=== PATIENT | female | born 1980 | race Native Hawaiian/Other Pacific Islander ===

== ENCOUNTER 2016-05-02 09:28 | Outpatient (CLI) | payer MEDICAID ==
--- NOTE | 2016-05-02 13:50 | XRAY Report ---
TWO VIEW CHEST: 05/02/2016 CLINICAL INDICATION: Cough. FINDINGS: Frontal and lateral views of the chest demonstrate a normal cardiac silhouette. The lungs are clear. No effusion or pneumothorax is present. IMPRESSION: NORMAL CHEST. JOB #: [id number] EXT JOB #:[id number]
== END 2016-05-02 09:29 | disposition home or self-care (01) ==
LOC: DI.N 09:28
PROVIDERS: ATTEND Physician Assistant
DX: R05 Cough (principal)
CPT/HCPCS: 71020

== ENCOUNTER 2016-06-02 14:29 | Emergency (ER) | payer MEDICAID ==
[2016-06-02] MEDS ORDERED: predniSONE 20 MG TABLET PO STA (15:27)
[2016-06-02] MEDS ORDERED: predniSONE 20 MG TABLET ONE (15:34)
== END 2016-06-02 15:46 | disposition home or self-care (01) ==
DX: L50.9 Urticaria, unspecified (principal); I10 Essential (primary) hypertension; E11.9 Type 2 diabetes mellitus without complications; Z79.84 Long term (current) use of oral hypoglycemic drugs; M06.9 Rheumatoid arthritis, unspecified; Z87.891 Personal history of nicotine dependence
CPT/HCPCS: 99283; J7512

== ENCOUNTER 2016-06-12 08:00 | Outpatient (CLI) | payer MEDICAID | END 2016-06-12 08:01 | disposition home or self-care (01) | DX: R31.9 Hematuria, unspecified (principal) ==

== ENCOUNTER 2018-01-16 10:33 | Outpatient (CLI) | payer MEDICAID ==
[2018-01-16 12:49] LABS: BASOPHILS % (AUTO) 0.4 %; EOSINOPHILS # (AUTO) 0.2 10^3/uL (0.0-0.7); EOSINOPHILS % (AUTO) 1.6 %; HGB - HEMOGLOBIN 14.5 g/dL (12.0-16.0); LYMPHOCYTES # (AUTO) 2.6 10^3/uL (1.5-3.5); LYMPHOCYTES % (AUTO) 25.7 %; MEAN CORPUSCULAR HEMOGLOBIN 28.7 pg (27.0-31.0); MEAN CORPUSCULAR HGB CONC 33.7 g/dL (32.0-36.0); MEAN CORPUSCULAR VOLUME 85.2 fL (81.0-99.0); MEAN PLATELET VOLUME 8.8 fL (7.9-10.8); MONOCYTES # (AUTO) 0.5 10^3/uL (0.0-1.0); MONOCYTES % (AUTO) 4.9 %; NEUTROPHILS # (AUTO) 6.7 10^3/uL (1.5-6.6); NEUTROPHILS % (AUTO) 67.4 %; PLT - PLATELET COUNT 289 10^3/uL (130-450); RED BLOOD COUNT 5.03 10^6/uL (4.20-5.40); RED CELL DISTRIBUTION WIDTH 12.4 % (12.0-15.0)
[2018-01-16 13:09] LABS: ALBUMIN/GLOBULIN RATIO 1.2 (1.0-2.2); BILIRUBIN,TOTAL 0.6 mg/dL (0.2-1.0); CALCIUM 9.1 mg/dL (8.5-10.3); CREATININE 0.6 mg/dL (0.4-1.0); TOTAL PROTEIN 7.3 g/dL (6.7-8.2); URIC ACID 5.1 mg/dL (2.6-7.2)
[2018-01-16 13:37] LABS: HB2 TOTAL 15.8 g/dL; HEMOGLOBIN A1C 1.75 g/dL; HEMOGLOBIN A1C % 12.3 % (4.6-6.2)
== END 2018-01-16 10:34 ==
LOC: LAB.N 10:33
PROVIDERS: ATTEND Physician Assistant Medical
DX: N23 Unspecified renal colic (principal); E11.65 Type 2 diabetes mellitus with hyperglycemia; E66.9 Obesity, unspecified
CPT/HCPCS: 36415; 80050; 83036; 84550

== ENCOUNTER 2018-03-08 11:25 | Emergency (ER) | payer MEDICAID ==
--- NOTE | 2018-03-08 12:59 | ED Physician Documentation ---
PD HPI HEENT - Stated complaint Stated Complaint: THROAT PX/SWOLLEN TONGUE - Chief complaint Chief Complaint: Heent - History obtained from History obtained from: Patient - History of Present Illness Timing - onset: How many weeks ago (1) Timing - duration: Weeks (1) Timing - details: Gradual onset, Still present Location: Throat Improves: Medication Worsens: Swalllowing Associated symptoms: Congestion, Swollen nodes, Headache, Cough Similar symptoms before: Diagnosis (tonsillitis) Recently seen: Not recently seen - Additional information Additional information: 37 y/o female diabetic with a cough and congestion for the past week felt her illness was improving and then she developed worsening pain in the left side of the throat and she has more swelling and "white stuff" on the tonsil. She has pain with swallowing and not much in the way of a cough. Review of Systems Constitutional: reports: Myalgias, Fatigue. denies: Fever Eyes: denies: Decreased vision Ears: denies: Ear pain Nose: reports: Rhinorrhea / runny nose, Congestion Throat: reports: Sore throat Cardiac: denies: Chest pain / pressure, Palpitations Respiratory: reports: Cough. denies: Dyspnea GI: denies: Abdominal Pain, Nausea, Vomiting : denies: Dysuria, Frequency PD PAST MEDICAL HISTORY - Past Medical History Past Medical History: Yes Cardiovascular: Hypertension Endocrine/Autoimmune: Type 2 diabetes Musculoskeletal: Rheumatoid arthritis - Past Surgical History Past Surgical History: No - Present Medications Home Medications: Ambulatory Orders Medication Instructions Recorded Confirmed Lisinopril 10 mg PO DAILY 02/26/16 05/16/16 metFORMIN [Glucophage] 1,000 mg PO BIDWM 02/26/16 05/16/16 Acetaminophen 500 mg PO Q6HR PRN 03/08/16 05/16/16 Aspirin 81 mg PO DAILY 03/08/16 05/16/16 Naproxen 500 mg PO BID 03/08/16 05/16/16 Loratadine [Claritin] 10 mg PO DAILY #14 tablet 06/02/16 predniSONE [Prednisone] 40 mg PO DAILY 5 Days tablet 06/02/16 Azithromycin [Zithromax] 250 mg PO DAILY #6 tablet 03/08/18 - Allergies Allergies/Adverse Reactions: Allergies Allergy/AdvReac Type Severity Reaction Status Date / Time No Known Drug Allergies Allergy Verified 03/08/18 11:34 - Social History Does the pt smoke?: No Smoking Status: Never smoker Does the pt drink ETOH?: No Does the pt have substance abuse?: No - Immunizations Immunizations are current?: No Immunizations: TDAP >10years/unknown PD ED PE NORMAL - Vitals Vital signs reviewed: Yes (hypertensive) - General General: Alert and oriented X 3, No acute distress, Well developed/nourished - HEENT HEENT: Atraumatic, PERRL, EOMI, Moist mucous membranes, Other (minimal inflamtion on both TM's. There are 1+ tonsils bilaterally worse on the left with cryptic tonsils and exudate and tonsillith on the left which is removed with a cotton tip applicator. 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, No motor deficit, No sensory deficit, Normal speech Eye Opening: Spontaneous Motor: Obeys Commands Verbal: Oriented GCS Score: 15 - Psych Psych: Normal mood, Normal affect Results - Vitals Vitals: Vital Signs - 24 hr 03/08/18 11:31 Temperature 36.8 C Heart Rate 100 Respiratory 16 Rate Blood Pressure 146/104 H O2 Saturation 99 Oxygen O2 Source Room air - Labs Labs: Laboratory Tests 03/08/18 11:58 Group A Strep Rapid Negative PD MEDICAL DECISION MAKING - ED course Complexity details: considered differential, d/w patient ED course: 37 y/o diabetic female has a sore throat with a bimodal illness and cryptic exudative tonsils worse on the left. She will benefit from a short course of abx. Departure - Departure Disposition: 01 Home, Self Care Clinical Impression: Tonsillitis Condition: Stable Instructions: ED Tonsillitis Follow-Up: Kevin Barkley PA-C [Primary Care Provider] - Prescriptions: Azithromycin [Zithromax] 250 mg PO DAILY #6 tablet
[2018-03-08 13:23] VITALS: BP 130/82
== END 2018-03-08 13:31 | disposition home or self-care (01) ==
LOC: ED 11:25
DX: J03.90 Acute tonsillitis, unspecified (principal); E11.9 Type 2 diabetes mellitus without complications; Z79.84 Long term (current) use of oral hypoglycemic drugs; I10 Essential (primary) hypertension; Z79.82 Long term (current) use of aspirin
CPT/HCPCS: 87070; 87077; 87430; 99283

== ENCOUNTER 2018-05-30 08:00 | Outpatient (CLI) | payer MEDICAID ==
[2018-05-30 13:23] LABS: HB2 TOTAL 16.8 g/dL; HEMOGLOBIN A1C 1.75 g/dL; HEMOGLOBIN A1C % 11.7 % (4.6-6.2)
== END 2018-05-30 23:59 | disposition home or self-care (01) ==
LOC: LAB.N 08:00
PROVIDERS: ATTEND Physician Assistant Medical
DX: E11.65 Type 2 diabetes mellitus with hyperglycemia (principal)
CPT/HCPCS: 36415; 83036

== ENCOUNTER 2019-04-18 10:03 | Emergency (ER) | payer SELFPAY ==
[2019-04-18 10:38] VITALS: BP 166/89
--- NOTE | 2019-04-18 11:20 | ED Physician Documentation ---
History of Present Illness - Stated complaint Stated Complaint: R ANKLE SWELLING - Chief complaint Chief Complaint: Ext Problem - History obtained from History obtained from: Patient - History of Present Illness Timing: How many weeks ago (1) - Additonal information Additional information: 38-year-old female with a history of hypertension and diabetes has developed some swelling in her right ankle. She is had this happen to her previously when she has overused her feet. She recalls being seen here and having successful treatment. She states that she has been out of her medication since October of last year and has not been in to find her regular physician in follow-up. She is usually been on some metformin and lisinopril. Review of Systems Constitutional: reports: Fatigue. denies: Fever, Chills Nose: denies: Congestion Respiratory: denies: Dyspnea, Cough GI: denies: Vomiting Skin: denies: Rash Musculoskeletal: reports: Extremity pain, Joint pain, Extremity swelling, Pain with weight bearing. denies: Neck pain, Back pain Neurologic: denies: Generalized weakness, Focal weakness, Numbness PD PAST MEDICAL HISTORY - Past Medical History Cardiovascular: Hypertension Endocrine/Autoimmune: Type 2 diabetes Musculoskeletal: Rheumatoid arthritis - Past Surgical History Past Surgical History: No - Present Medications Home Medications: Ambulatory Orders Medication Instructions Recorded Confirmed Indomethacin 25 - 50 mg PO Q6HR PRN #30 capsule 04/18/19 Lisinopril [Prinivil] 10 mg PO DAILY #30 tablet 04/18/19 metFORMIN [Glucophage] 1,000 mg PO BIDWM #60 tablet 04/18/19 - Allergies Allergies/Adverse Reactions: Allergies Allergy/AdvReac Type Severity Reaction Status Date / Time No Known Drug Allergies Allergy Verified 04/18/19 10:13 - Social History Does the pt smoke?: No Smoking Status: Never smoker Does the pt drink ETOH?: No Does the pt have substance abuse?: No - Immunizations Immunizations are current?: No Immunizations: TDAP >10years/unknown PD ED PE NORMAL - Vitals Vital signs reviewed: Yes (Tachycardic and hypertensive) - General General: Alert and oriented X 3, No acute distress, Well developed/nourished - HEENT HEENT: Atraumatic, PERRL, EOMI - Respiratory Respiratory: No respiratory distress - Derm Derm: Normal color, Warm and dry, No rash - Extremities Extremities: Other (There is swelling and point tenderness to the medial aspect of the right ankle. 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 She had prior treatment with indomethacin which was successful. We will refill a prescription for indomethacin and we will fill prescriptions for 30 days of metformin and lisinopril. Departure - Departure Disposition: Home, Self Care Clinical Impression: Arthritis Hypertension Qualifiers: Hypertension type: essential hypertension Qualified Code(s): I10 - Essential (primary) hypertension Condition: Stable Instructions: Arthritis, ED HTN Established Follow-Up: Kevin Barkley PA-C [Primary Care Provider] - Prescriptions: Indomethacin 25 - 50 mg PO Q6HR PRN #30 capsule PRN Reason: Pain Lisinopril [Prinivil] 10 mg PO DAILY #30 tablet metFORMIN [Glucophage] 1,000 mg PO BIDWM #60 tablet Forms: Activity restrictions
== END 2019-04-18 11:32 | disposition home or self-care (01) ==
LOC: ED 10:03
DX: M13.871 Other specified arthritis, right ankle and foot (principal); Z76.0 Encounter for issue of repeat prescription; M06.9 Rheumatoid arthritis, unspecified; I10 Essential (primary) hypertension; E11.9 Type 2 diabetes mellitus without complications; Z79.84 Long term (current) use of oral hypoglycemic drugs
CPT/HCPCS: 99283; 99284

== ENCOUNTER 2019-04-24 07:57 | Outpatient (CLI) | payer SELFPAY ==
[2019-04-24 12:05] LABS: CALCIUM 8.6 mg/dL (8.5-10.3); CREATININE 0.6 mg/dL (0.4-1.0)
[2019-04-24 12:52] LABS: HB2 TOTAL 14.8 g/dL; HEMOGLOBIN A1C 1.83 g/dL; HEMOGLOBIN A1C % 13.5 % (4.6-6.2)
== END 2019-04-24 23:59 | disposition home or self-care (01) ==
LOC: LAB.N 07:57
PROVIDERS: ATTEND Physician Assistant Medical
DX: E11.65 Type 2 diabetes mellitus with hyperglycemia (principal)
CPT/HCPCS: 36415; 80048; 83036

== ENCOUNTER 2020-03-15 15:44 | Outpatient (CLI) | payer MEDICAID ==
--- NOTE | 2020-03-14 16:35 | XRAY Report ---
PROCEDURE: Elbow 2 View LT INDICATIONS: LEFT ELBOW PAIN TECHNIQUE: 2 views of the elbow were acquired. COMPARISON: None FINDINGS: Bones: No fractures or dislocations. No suspicious bony lesions. Soft tissues: No elbow joint effusion. No suspicious soft tissue calcifications. IMPRESSION: No elbow fracture or dislocation. No joint effusion. Reviewed by: Reji Lamb MD on 03/14/2020 4:33 PM PST Approved by: Reji Lamb MD on 03/14/2020 4:33 PM PST Station ID: [id number]
== END 2020-03-15 23:59 | disposition home or self-care (01) ==
LOC: DI.N 15:44
PROVIDERS: ATTEND Nurse Practitioner
DX: M25.522 Pain in left elbow (principal)

== ENCOUNTER 2020-05-21 14:20 | Outpatient (CLI) | payer MEDICAID ==
--- NOTE | 2020-05-21 14:47 | XRAY Report ---
PROCEDURE: Cervical Spine 2 View INDICATIONS: CERVICAL DISK DISORDER TECHNIQUE: 4 view(s) of the cervical spine were acquired. COMPARISON: None. FINDINGS: Bones: No fractures or dislocations to the C6 level. The lateral masses of C1 appear intact on the odontoid view. No suspicious bony lesions. Soft tissues: No prevertebral soft tissue swelling. IMPRESSION: No acute fracture. No osseous lesion. If symptoms and/or clinical suspicion for patholog y continue, further assessment with repeat plain films, or advanced imaging (e.g., CT, MRI, or bone s can) is recommended for further assessment. Reviewed by: Irma Forrest MD on 05/21/2020 1:46 PM [facility] Approved by: Irma Forrest MD on 05/21/2020 1:46 PM [facility] Station ID: [id number]
--- NOTE | 2020-05-21 14:48 | XRAY Report ---
PROCEDURE: Shoulder 3 View LT INDICATIONS: LEFT SHOULDER PAIN TECHNIQUE: 3 views of the shoulder were acquired. COMPARISON: None. FINDINGS: Bones: No fractures or dislocations. No suspicious bony lesions. Visualized ribs appear intact. ; Articular osteophyte formation at the acromioclavicular and glenohumeral joints. Soft tissues: No suspicious soft tissue calcifications. IMPRESSION: Osteoarthritis. No acute fracture. No osseous lesion. If symptoms and/or clinical suspic ion for pathology continue, further assessment with repeat plain films, or advanced imaging (e.g., CT , MRI, or bone scan) is recommended for further assessment. Reviewed by: Irma Forrest MD on 05/21/2020 1:46 PM [facility] Approved by: Irma Forrest MD on 05/21/2020 1:46 PM [facility] Station ID: [id number]
== END 2020-05-21 14:21 | disposition home or self-care (01) ==
LOC: DI.N 14:20
PROVIDERS: ATTEND Family Medicine
DX: M50.10 Cervical disc disorder with radiculopathy, unspecified cervical region (principal); M19.012 Primary osteoarthritis, left shoulder

== ENCOUNTER 2020-08-03 08:00 | Outpatient (CLI) | payer MEDICAID | END 2020-08-03 23:59 | disposition home or self-care (01) | LOC: LAB.N 08:00 | PROVIDERS: ATTEND Nurse Practitioner | DX: J06.9 Acute upper respiratory infection, unspecified (principal); Z20.822 Contact with and (suspected) exposure to COVID-19 ==

== ENCOUNTER 2020-10-07 12:17 | Outpatient (CLI) | payer MEDICAID ==
[2020-10-07 17:40] LABS: BASOPHILS # (AUTO) 0.1 10^3/uL (0.0-0.1); BASOPHILS % (AUTO) 0.5 %; EOSINOPHILS # (AUTO) 0.2 10^3/uL (0.0-0.7); EOSINOPHILS % (AUTO) 2.1 %; HCT - HEMATOCRIT 44.8 % (37.0-47.0); HGB - HEMOGLOBIN 14.6 g/dL (12.0-16.0); LYMPHOCYTES % (AUTO) 28.9 %; MEAN CORPUSCULAR HEMOGLOBIN 28.1 pg (27.0-31.0); MEAN CORPUSCULAR HGB CONC 32.6 g/dL (32.0-36.0); MEAN CORPUSCULAR VOLUME 86.3 fL (81.0-99.0); MEAN PLATELET VOLUME 10.6 fL (7.9-10.8); MONOCYTES # (AUTO) 0.6 10^3/uL (0.0-1.0); MONOCYTES % (AUTO) 5.6 %; NEUTROPHILS # (AUTO) 6.5 10^3/uL (1.5-6.6); NEUTROPHILS % (AUTO) 62.6 %; PLT - PLATELET COUNT 294 10^3/uL (130-450); RED BLOOD COUNT 5.19 10^6/uL (4.20-5.40); RED CELL DISTRIBUTION WIDTH 11.7 % (12.0-15.0); WHITE BLOOD COUNT 10.4 x10^3/uL (4.8-10.8)
[2020-10-07 17:57] LABS: ALBUMIN 4.2 g/dL (3.2-5.5); ALBUMIN/GLOBULIN RATIO 1.3 (1.0-2.2); ALKALINE PHOSPHATASE 61 IU/L (42-121); ALT ALANINE AMINOTRANSFERASE 13 IU/L (10-60); AST ASPARTATE AMINOTRANSFERASE 12 IU/L (10-42); BILIRUBIN,TOTAL 0.8 mg/dL (0.2-1.0); BUN - BLOOD UREA NITROGEN 16 mg/dL (6-20); CARBON DIOXIDE - CO2 29 mmol/L (21-32); CHLORIDE 94 mmol/L (101-111); CHOL/HDL RATIO 5.1 (<4.4); CHOLESTEROL 250 mg/dL; CREATININE 0.4 mg/dL (0.4-1.0); GFR - MDRD 179 (>89); GLUCOSE 185 mg/dL (70-100); HDL CHOLESTEROL 49 mg/dL; LDL CHOLESTEROL,CALCULATED 159 mg/dL; LDL/HDL RATIO 3.2 (<4.4); POTASSIUM 3.7 mmol/L (3.5-5.0); SODIUM 132 mmol/L (135-145); TOTAL PROTEIN 7.4 g/dL (6.7-8.2); TRIGLYCERIDES 210 mg/dL; VLDL CHOLESTEROL 42 mg/dL
[2020-10-07 17:59] LABS: CREATININE,URINE 173.7 mg/dL; MICROALBUM/CREATININE RATIO,UR 158.3 ug/mg (<30.0); MICROALBUMIN,URINE 27.5 mg/dL (0-300.0)
[2020-10-07 18:07] LABS: THYROID STIMULATING HORMONE 0.87 uIU/mL (0.34-5.60)
[2020-10-07 20:05] LABS: ESTIMATED AVERAGE GLUCOSE 301 mg/dL (70-100); HEMOGLOBIN A1c% 12.1 % (4.27-6.07)
== END 2020-10-07 12:18 | disposition home or self-care (01) ==
LOC: LAB.N 12:17
PROVIDERS: ATTEND Family Medicine
DX: E11.8 Type 2 diabetes mellitus with unspecified complications (principal)
CPT/HCPCS: 36415; 80050; 80061; 82043; 82570; 83036; 83721

== ENCOUNTER 2021-01-02 13:37 | Outpatient (CLI) | payer MEDICAID ==
--- NOTE | 2021-01-02 14:26 | XRAY Report ---
PROCEDURE: Shoulder 3 View LT INDICATIONS: LEFT SHOULDER PAIN TECHNIQUE: 3 views of the shoulder were acquired. COMPARISON: None. FINDINGS: Bones: No fractures or dislocations. No suspicious bony lesions. Visualized ribs appear intact. H umeral head is mildly high riding. Soft tissues: No suspicious soft tissue calcifications. IMPRESSION: No acute osseous abnormality. High riding humeral head which can be seen with rotator cuff pathology. Reviewed by: Tatyana Cat MD on 01/02/2021 2:24 PM PDT Approved by: Tatyana Cat MD on 01/02/2021 2:24 PM PDT Station ID: [id number]
== END 2021-01-02 13:38 ==
LOC: DI.N 13:37
PROVIDERS: ATTEND Physician Assistant
DX: M25.512 Pain in left shoulder (principal); R93.6 Abnormal findings on diagnostic imaging of limbs

== ENCOUNTER 2021-01-11 14:59 | Outpatient (CLI) | payer MEDICAID ==
[2021-01-11 21:15] LABS: ESTIMATED AVERAGE GLUCOSE 283 mg/dL (70-100); HEMOGLOBIN A1c% 11.5 % (4.27-6.07)
== END 2021-01-11 23:59 | disposition home or self-care (01) ==
LOC: LAB.WCP 14:59
PROVIDERS: ATTEND Family Medicine
DX: E11.8 Type 2 diabetes mellitus with unspecified complications (principal)
CPT/HCPCS: 36415; 83036

== ENCOUNTER 2021-02-28 08:00 | Outpatient (CLI) | payer MEDICAID ==
[2021-03-01 09:25] LABS: BASOPHILS # (AUTO) 0.1 10^3/uL (0.0-0.1); BASOPHILS % (AUTO) 0.4 %; EOSINOPHILS # (AUTO) 0.3 10^3/uL (0.0-0.7); EOSINOPHILS % (AUTO) 2.2 %; HCT - HEMATOCRIT 44.8 % (37.0-47.0); HGB - HEMOGLOBIN 14.4 g/dL (12.0-16.0); LYMPHOCYTES # (AUTO) 3.1 10^3/uL (1.5-3.5); LYMPHOCYTES % (AUTO) 26.1 %; MEAN CORPUSCULAR HGB CONC 32.1 g/dL (32.0-36.0); MEAN CORPUSCULAR VOLUME 87.2 fL (81.0-99.0); MEAN PLATELET VOLUME 10.7 fL (7.9-10.8); MONOCYTES # (AUTO) 0.8 10^3/uL (0.0-1.0); MONOCYTES % (AUTO) 6.3 %; NEUTROPHILS # (AUTO) 7.7 10^3/uL (1.5-6.6); NEUTROPHILS % (AUTO) 64.6 %; PLT - PLATELET COUNT 305 10^3/uL (130-450); RED BLOOD COUNT 5.14 10^6/uL (4.20-5.40); RED CELL DISTRIBUTION WIDTH 12.4 % (12.0-15.0); WHITE BLOOD COUNT 11.9 x10^3/uL (4.8-10.8)
[2021-03-01 10:57] LABS: ALBUMIN 4.2 g/dL (3.2-5.5); ALBUMIN/GLOBULIN RATIO 1.4 (1.0-2.2); ALKALINE PHOSPHATASE 60 IU/L (42-121); ALT ALANINE AMINOTRANSFERASE 14 IU/L (10-60); AST ASPARTATE AMINOTRANSFERASE 16 IU/L (10-42); BILIRUBIN,TOTAL 0.8 mg/dL (0.2-1.0); BUN - BLOOD UREA NITROGEN 12 mg/dL (6-20); CALCIUM 8.8 mg/dL (8.5-10.3); CARBON DIOXIDE - CO2 27 mmol/L (21-32); CHLORIDE 98 mmol/L (101-111); CHOL/HDL RATIO 5.2 (<4.4); CHOLESTEROL 202 mg/dL; CREATININE 0.4 mg/dL (0.4-1.0); GFR - MDRD 179 (>89); GLUCOSE 302 mg/dL (70-100); HDL CHOLESTEROL 39 mg/dL; LDL CHOLESTEROL,CALCULATED 138 mg/dL; LDL/HDL RATIO 3.5 (<4.4); POTASSIUM 3.6 mmol/L (3.5-5.0); SODIUM 134 mmol/L (135-145); TOTAL PROTEIN 7.3 g/dL (6.7-8.2); TRIGLYCERIDES 125 mg/dL; VLDL CHOLESTEROL 25 mg/dL
[2021-03-01 11:06] LABS: THYROID STIMULATING HORMONE 0.82 uIU/mL (0.34-5.60)
[2021-03-01 12:37] LABS: ESTIMATED AVERAGE GLUCOSE 246 mg/dL (70-100); HEMOGLOBIN A1c% 10.2 % (4.27-6.07)
== END 2021-02-28 23:59 | disposition home or self-care (01) ==
LOC: LAB.WCP 08:00
PROVIDERS: ATTEND Family Medicine
DX: I10 Essential (primary) hypertension (principal); E11.8 Type 2 diabetes mellitus with unspecified complications
CPT/HCPCS: 36415; 80050; 80061; 83036; 83721

== ENCOUNTER 2021-06-19 07:56 | Outpatient (CLI) | payer MEDICAID ==
[2021-06-19 12:51] LABS: ALBUMIN 4.3 g/dL (3.2-5.5); ALBUMIN/GLOBULIN RATIO 1.2 (1.0-2.2); ALKALINE PHOSPHATASE 75 IU/L (42-121); ALT ALANINE AMINOTRANSFERASE 14 IU/L (10-60); AST ASPARTATE AMINOTRANSFERASE 12 IU/L (10-42); BILIRUBIN,TOTAL 0.2 mg/dL (0.2-1.0); BUN - BLOOD UREA NITROGEN 15 mg/dL (6-20); CARBON DIOXIDE - CO2 26 mmol/L (21-32); CHLORIDE 99 mmol/L (101-111); CHOL/HDL RATIO 4.6 (<4.4); CHOLESTEROL 209 mg/dL; CREATININE 0.5 mg/dL (0.4-1.0); GFR - MDRD 137 (>89); GLUCOSE 273 mg/dL (70-100); HDL CHOLESTEROL 45 mg/dL; LDL CHOLESTEROL,CALCULATED 139 mg/dL; LDL/HDL RATIO 3.1 (<4.4); POTASSIUM 3.9 mmol/L (3.5-5.0); SODIUM 135 mmol/L (135-145); TOTAL PROTEIN 7.8 g/dL (6.7-8.2); TRIGLYCERIDES 126 mg/dL; VLDL CHOLESTEROL 25 mg/dL
[2021-06-19 13:53] LABS: ESTIMATED AVERAGE GLUCOSE 298 mg/dL (70-100)
== END 2021-06-19 07:57 | disposition home or self-care (01) ==
LOC: LAB.N 07:56
PROVIDERS: ATTEND Family Medicine
DX: E11.8 Type 2 diabetes mellitus with unspecified complications (principal)
CPT/HCPCS: 36415; 80053; 80061; 83036; 83721

== ENCOUNTER 2021-07-13 14:10 | Emergency (ER) | payer MEDICAID ==
--- NOTE | 2021-07-13 14:36 | ED Physician Documentation ---
History of Present Illness - Stated complaint Stated Complaint: C+HIGH HEART RATE - Chief complaint Chief Complaint: Cardiac - Additonal information Additional information: 41-year-old female who carries a history of diabetes presents the emergency department at the advice of local walk-in clinic for further evaluation and possible treatment of her COVID-19 infection. She began getting symptoms on 04 July and tested positive on the . She continues to test positive therefore she went to a walk-in clinic seeking treatment. It sounds as though she had a mildly elevated heart rate and given the history of diabetes and her desire for oral antiviral therapy she was referred to the emergency department. She denies any fevers. She does have some mild shortness of air. Her cough is dry. No loss of taste or smell nausea vomiting or diarrhea. She is fully vaccinated and boosted for COVID-19. Review of Systems Constitutional: denies: Fever, Chills Nose: reports: Congestion Throat: reports: Reviewed and negative Cardiac: reports: Reviewed and negative Respiratory: reports: Cough GI: reports: Reviewed and negative : reports: Reviewed and negative Skin: reports: Reviewed and negative Musculoskeletal: reports: Reviewed and negative PD PAST MEDICAL HISTORY - Past Medical History Cardiovascular: Hypertension Endocrine/Autoimmune: Type 2 diabetes Musculoskeletal: Rheumatoid arthritis - Past Surgical History Past Surgical History: No - Present Medications Home Medications: Ambulatory Orders Medication Instructions Recorded Confirmed Indomethacin 25 - 50 mg PO Q6HR PRN #30 capsule 04/18/19 lisinopriL [Prinivil] 10 mg PO DAILY #30 tablet 04/18/19 metFORMIN [Glucophage] 1,000 mg PO BIDWM #60 tablet 04/18/19 - Allergies Allergies/Adverse Reactions: Allergies Allergy/AdvReac Type Severity Reaction Status Date / Time No Known Drug Allergies Allergy Verified 07/13/21 14:13 - Social History Does the pt smoke?: No Smoking Status: Never smoker Does the pt drink ETOH?: No Does the pt have substance abuse?: No - Immunizations Immunizations are current?: No Immunizations: TDAP >10years/unknown PD ED PE EXPANDED - General General: Alert, No acute distress, Other (Obese) - Cardiac Cardiac: Regular Rate, Murmur Present, Radial strong equal, Pedal strong equal, Cap refill < 2 sec - Respiratory Respiratory: Clear to ausultation masoud. No: Distress, Labored - Abdomen Abdomen: Normal Bowel sounds. No: Tender to palpation - Derm Derm: Normal color, Warm and dry, Rash - Extremities Extremities: Normal. No: Deformity, Tenderness - Neuro Neuro: Alert and Oriented X 3, CNII-XII intact. No: Confused, Disoriented - GCS Eye Opening: Spontaneous Motor: Obeys Commands Verbal: Oriented Total: 15 Results - Vitals Vitals: Vital Signs - 24 hr 07/13/21 14:14 Temperature 36.9 C Heart Rate 107 H Respiratory 18 Rate Blood Pressure 191/104 H O2 Saturation 96 Oxygen O2 Source Room air - EKG (time done) 1418 Rate: Rate (enter#) (103) Rhythm: Sinus tachycardia [place]: Normal Intervals: Normal GA QRS: Low voltage Ischemia: Normal ST segments Compare to prior EKG: Old EKG unavailable Computer interpretation: Agree with computer - Labs Labs: Laboratory Tests 07/13/21 07/13/21 14:32 14:32 WBC 13.4 H RBC 5.26 Hgb 14.7 Hct 43.7 MCV 83.1 MCH 27.9 MCHC 33.6 RDW 11.7 L Plt Count 305 MPV 10.1 Neut # (Auto) 9.5 H Lymph # (Auto) 2.6 [place] # (Auto) 0.9 Eos # (Auto) 0.3 Baso # (Auto) 0.1 Absolute Nucleated RBC 0.00 Nucleated RBC % 0.0 Sodium 135 Potassium 4.2 Chloride 96 L Carbon Dioxide 29 Anion Gap 10.0 BUN 18 Creatinine 0.6 Estimated GFR (MDRD) 111 Glucose 446 H Calcium 9.9 Total Bilirubin 0.6 AST 15 ALT 19 Alkaline Phosphatase 61 Total Protein 7.9 Albumin 4.2 Globulin 3.7 Albumin/Globulin Ratio 1.1 Lipase 37 - Rads (name of study) cxr Radiology: Final report received (No acute cardiopulmonary process) PD MEDICAL DECISION MAKING - ED course Complexity details: reviewed results, re-evaluated patient, considered differential, d/w patient ED course: 41-year-old female presents emergency department for evaluation for COVID-19 symptoms. Began getting them 9 days ago and tested positive on the . She is doubly vaccinated and boosted. She is a diabetic as well as on a statin. Her screening chest x-ray shows no acute abnormalities. No hypoxia and unremarkable cardiopulmonary auscultation. Would not meet criteria for inpatient hospitalization. Her screening labs do show a preserved renal function. She is noted to have a markedly elevated blood glucose today. Admits to not taking her insulins this morning. We discussed the use of the oral antiviral therapy paxlovid in the setting of COVID-19 infection. She is within the window of treatment. The statin that she takes daily she has been advised to stop while on the paxlovid. She is otherwise encouraged to continue her other medications as well as her insulins for improved glucose control. Emergent return precautions were discussed for worsening symptoms severe shortness of air or chest pain. Departure - Departure Disposition: Home, Self Care Clinical Impression: COVID-19, Poorly controlled diabetes mellitus Condition: Stable Record reviewed to determine appropriate education?: Yes Comments: Zoya you tested positive for COVID-19 9 days ago. You are vaccinated and boosted. However you are interested in taking the oral antiviral therapy called pack Slo-Bid to help you through this infection. While you are on this medication for the next 5 days I do recommend that you abstain from taking your oral statin. I do recommend that you continue to take your other medications especially the insulins and control of your diabetes. If at any point you feel that your COVID symptoms are worsening, you have severe chest pain, shortness of air, any fainting episodes or uncontrolled vomiting then please return to the ER for a second evaluation.
[2021-07-13 14:43] LABS: BASOPHILS # (AUTO) 0.1 10^3/uL (0.0-0.1); BASOPHILS % (AUTO) 0.4 %; EOSINOPHILS # (AUTO) 0.3 10^3/uL (0.0-0.7); HCT - HEMATOCRIT 43.7 % (37.0-47.0); HGB - HEMOGLOBIN 14.7 g/dL (12.0-16.0); LYMPHOCYTES # (AUTO) 2.6 10^3/uL (1.5-3.5); LYMPHOCYTES % (AUTO) 19.7 %; MEAN CORPUSCULAR HEMOGLOBIN 27.9 pg (27.0-31.0); MEAN CORPUSCULAR HGB CONC 33.6 g/dL (32.0-36.0); MEAN CORPUSCULAR VOLUME 83.1 fL (81.0-99.0); MEAN PLATELET VOLUME 10.1 fL (7.9-10.8); MONOCYTES # (AUTO) 0.9 10^3/uL (0.0-1.0); MONOCYTES % (AUTO) 6.5 %; NEUTROPHILS # (AUTO) 9.5 10^3/uL (1.5-6.6); NEUTROPHILS % (AUTO) 70.8 %; PLT - PLATELET COUNT 305 10^3/uL (130-450); RED BLOOD COUNT 5.26 10^6/uL (4.20-5.40); RED CELL DISTRIBUTION WIDTH 11.7 % (12.0-15.0); WHITE BLOOD COUNT 13.4 x10^3/uL (4.8-10.8)
[2021-07-13 15:01] LABS: ALBUMIN 4.2 g/dL (3.2-5.5); ALBUMIN/GLOBULIN RATIO 1.1 (1.0-2.2); BILIRUBIN,TOTAL 0.6 mg/dL (0.2-1.0); CALCIUM 9.9 mg/dL (8.5-10.3); CREATININE 0.6 mg/dL (0.4-1.0); POTASSIUM 4.2 mmol/L (3.5-5.0); TOTAL PROTEIN 7.9 g/dL (6.7-8.2)
[2021-07-13] MEDS ORDERED: NIRMATRELVIR/RITONAVIR PREPACK PO STA (15:09)
--- NOTE | 2021-07-13 15:21 | XRAY Report ---
PROCEDURE: Chest 1 View X-Ray INDICATIONS: Chest pain TECHNIQUE: One view of the chest was acquired. COMPARISON: Chest radiograph 05/02/2016 FINDINGS: Surgical changes and devices: None. Lungs and pleura: No pleural effusions or pneumothorax. Lungs are clear. Mediastinum: Mediastinal contours appear normal. Heart size is normal. Bones and chest wall: No suspicious bony lesions. Overlying soft tissues appear unremarkable. IMPRESSION: No acute cardiopulmonary abnormality. Reviewed by: Ed Fu MD on 07/13/2021 3:19 PM PDT Approved by: Ed Fu MD on 07/13/2021 3:19 PM PDT Station ID: [id number]
[2021-07-13 15:36] VITALS: BP 134/81
== END 2021-07-13 15:35 | disposition home or self-care (01) ==
LOC: ED 14:10
DX: U07.1 COVID-19 (principal); E11.9 Type 2 diabetes mellitus without complications; Z79.84 Long term (current) use of oral hypoglycemic drugs
CPT/HCPCS: 36415; 71045; 80053; 83690; 84484; 85025; 93005; 99284; J3490

== ENCOUNTER 2024-11-27 06:46 | Inpatient (IN) ==
[2024-11-27] MEDS: ONDANSETRON ODT 4 MG TABLET TL STA (08:25)
[2024-11-27 08:29] LABS: B. PARAPERTUSSIS- RESP PCR PAN NOT DETECTED; B. PERTUSSIS- RESP PCR PANEL NOT DETECTED; C. PNEUMONIAE- RESP PCR PANEL NOT DETECTED; CORONAVIRUS 229E-RESP PCR NOT DETECTED; CORONAVIRUS HKU1-RESP PCR NOT DETECTED; CORONAVIRUS NL63-RESP PCR NOT DETECTED; CORONAVIRUS OC43-RESP PCR NOT DETECTED; HUMAN METAPNEUMOVIRUS NOT DETECTED; INFLUENZA A- RESP PCR PANEL NOT DETECTED; INFLUENZA B - RESP PCR PANEL NOT DETECTED; M. PNEUMONIAE- RESP PCR PANEL NOT DETECTED; PARAINFLUENZA VIRUS 1 NOT DETECTED; PARAINFLUENZA VIRUS 2 NOT DETECTED; PARAINFLUENZA VIRUS 4 NOT DETECTED; RHINOVIRUS/ENTEROVIRUS NOT DETECTED; RSV- RESP PCR PANEL NOT DETECTED; SARS-CoV-2 -RESP PCR PANEL NOT DETECTED
[2024-11-27] MEDS: SODIUM CHLORIDE 0.9% 1,000 ML IV STA ×4 (08:30→10:50)
[2024-11-27 08:54] LABS: HCT - HEMATOCRIT 32.4 % (37.0-47.0); HGB - HEMOGLOBIN 10.8 g/dL (12.0-16.0); MEAN PLATELET VOLUME 11.1 fL (7.9-10.8); PLT - PLATELET COUNT 228 10^3/uL (130-450); RED CELL DISTRIBUTION WIDTH 12.4 % (12.0-15.0)
[2024-11-27 08:57] LABS: ABNORMAL LYMPHS % (MANUAL) 0 %; BASOPHILS # (MANUAL) 0.0 10^3/uL (0-0.1); EOSINOPHILS # (MANUAL) 0.0 10^3/uL (0-0.7)
[2024-11-27 09:15] LABS: ALT ALANINE AMINOTRANSFERASE 9.0 IU/L (10-60); AST ASPARTATE AMINOTRANSFERASE 10.0 IU/L (10-42); BUN - BLOOD UREA NITROGEN 38.0 mg/dL (6-20); CARBON DIOXIDE - CO2 14.0 mmol/L (21-32); CREATININE 1.6 mg/dL (0.6-1.3); GFR - MDRD 35.0 (>89)
[2024-11-27 09:34] LABS: BAND NEUTROPHILS % (MANUAL) 16 %; LYMPHOCYTES # (MANUAL) 1.8 10^3/uL (1.5-3.5); LYMPHOCYTES % (MANUAL) 6 %; MONOCYTES # (MANUAL) 1.2 10^3/uL (0.0-1.0); NEUTROPHILS # (MANUAL) 26.4 10^3/uL (1.5-6.6)
[2024-11-27 09:35] LABS: PLATELET ESTIMATE, MANUAL NORMAL (130-450,000) (NORMAL); PLATELET MORPHOLOGY NORMAL APPEARANCE (NORMAL); RBC MORPHOLOGY (MULTIPLE) NORMAL APPEARANCE (NORMAL); WBC MORPHOLOGY (MULTIPLE) NORMAL APPEARANCE (NORMAL)
[2024-11-27] MEDS: INSULIN REGULAR IN 0.9 % NS 100 UNIT/100 ML BAG IV SCH ×2 (09:50→12:59)
[2024-11-27] MEDS ORDERED: INSULIN REGULAR IN 0.9 % NS 100 UNIT/100 ML BAG IV SCH (10:00)
[2024-11-27] MEDS: DROPERIDOL 5 MG/2 ML VIAL IVP STA (10:48)
[2024-11-27 10:57] LABS: GASTROCCULT POSITIVE (Negative)
[2024-11-27 11:17] LABS: BUN - BLOOD UREA NITROGEN 35.0 mg/dL (6-20); CARBON DIOXIDE - CO2 17.0 mmol/L (21-32); CREATININE 1.3 mg/dL (0.6-1.3); GFR - MDRD 45.0 (>89)
[2024-11-27 11:18] LABS: GLUCOSE, URINE (UA) >=1000 mg/dL (NEGATIVE); KETONES,URINE (UA) >=80 mg/dL (NEGATIVE); OCCULT BLOOD,URINE LARGE (NEGATIVE)
[2024-11-27 11:26] LABS: SQUAMOUS EPITHELIAL CELL,UR FEW Squamous (<= Few)
[2024-11-27] MEDS: PANTOPRAZOLE 40 MG VIAL IV STA (11:41)
[2024-11-27] MEDS: POTASSIUM CHLOR 10 MEQ/100 ML 10 MEQ/100 ML BAG IV STA (11:44)
--- NOTE | 2024-11-27 11:50 | CT Report ---
PROCEDURE: CT Abdomen/Pelvis W INDICATIONS: vomiting fever wbc 30 CONTRAST: IV contrast 100ml omni 300 TECHNIQUE: After the administration of intravenous contrast, a CT scan of the abdomen and pelvis was performed. Images were recorded and evaluated at appropriate window settings. Reformats: coronal and sagittal. For radiation dose reduction, the following was used: automated exposure control, adjustment of mA and/or kV according to patient size. COMPARISON: None. FINDINGS: Image quality: Diagnostic Lower chest: Lung bases appear unremarkable. Mild nonspecific distal esophageal wall thickening possibly esophagitis. Liver: Unremarkable Gallbladder and biliary system: Unremarkable Pancreas: No ductal dilation Spleen: Nonenlarged Adrenals: No discrete nodules Kidneys: No hydronephrosis bilaterally. At the left kidney, there is a low density region measuring 5.1 x 4.7 cm with adjacent indistinctness of the cortex. Capsular hyperdense collection is seen measuring up to 13.9 x 8.5 cm. Edema and hemorrhage extends along the left retroperitoneum. Vessels and lymph nodes: The main portal vein appears patent. No abdominal aortic aneurysm. Mild aortoiliac atherosclerotic calcifications. Prominent retroperitoneal lymph nodes, not enlarged by size criteria, possibly reactive Bowel and peritoneum: No bowel obstruction. No drainable intraperitoneal abscess or ascites. Mild edema and fat stranding extends along the left mesenteric root to the left paracolic gutter. Body wall: Unremarkable Pelvis: Bladder shows mild wall thickening at the anterior aspect. Reproductive organs are unremarkable limited CT evaluation Bones: No aggressive appearing osseous finding. There are mild lumbosacral degenerative changes. IMPRESSION: 5.1 cm hypoattenuating left renal hypoattenuating region. Adjacent 13.9 cm hyperdense left renal capsular collection. Given concern for infection, this could represent an intrarenal abscess with capsular rupture and hematoma. Other considerations include underlying renal lesion with capsular rupture or a renal laceration. Edema and suspected hemorrhage extends along the left retroperitoneum and mesenteric root If there clinical concern for bleeding and trauma, multiphase CT could be used to assess for extravasation. No hydronephrosis. Mild bladder wall thickening, correlate urinalysis. Other findings above. Reviewed by: Rios Leon MD on 11/27/2024 11:49 AM PDT Approved by: Rios Leon MD on 11/27/2024 11:49 AM PDT Station ID: [id number]
--- OUTSIDE RECORDS SUMMARY | 2024-11-27 11:56 | EXTERNAL MEDICAL SUMMARY RPT | Continuity of Care Document ---
Author Organization [facility] Address [address] [address] Phone Results/Labs test date facility value unit notes Result panel 1 SARS-CoV-2 -RESP PCR PANEL 2024-11-27 07:05 [facility] NOT DETECTED (missing) A negative test result for this test indicates that SARS-CoV-2 RNA was not present in the specimen above the limit of detection. Testing performed on the BioFire RP2.1 Panel, a multiplexed nucleic acid repiratory panel. Negative results do not preclude infection with SARS-CoV-2 virus and should not be the sole basis of a patient management decision. In some patients repeat testing at various time points may be necessary for virus detection. False-negative results may arise from improper sample collection, degradation of viral RNA during shipping or storage, the presence of PCR inhibitors, and/or mutation in the SARS-CoV-2 virus. INFLUENZA A- RESP PCR PANEL 2024-11-27 07:05 [facility] NOT DETECTED (missing) Influenza A including subtypes H1, H3, and H1-2009 not detected by the BioFire RP2.1 Panel, a multiplexed nucleic acid test intended for the simultaneous qualitative detection and differentiation of nucleic acids from multiple viral and bacterial respiratory organisms. B. PARAPERTUSSIS- RESP PCR YBARRA 2024-11-27 07:05 [facility] NOT DETECTED (missing) Negative results for this organism do not preclude infection with this organism and may require additional laboratory testing (e.g., bacterial and viral culture, immunofluorescence, and radiography) when evaluating a patient with possible respiratory tract infection. B. PERTUSSIS- RESP PCR PANEL 2024-11-27 07:05 [facility] NOT DETECTED (missing) Negative results for this organism do not preclude infection with this organism and may require additional laboratory testing (e.g., bacterial and viral culture, immunofluorescence, and radiography) when evaluating a patient with possible respiratory tract infection. C. PNEUMONIAE- RESP PCR PANEL 2024-11-27 07:05 [facility] NOT DETECTED (missing) Negative results for this organism do not preclude infection with this organism and may require additional laboratory testing (e.g., bacterial and viral culture, immunofluorescence, and radiography) when evaluating a patient with possible respiratory tract infection. M. PNEUMONIAE- RESP PCR PANEL 2024-11-27 07:05 [facility] NOT DETECTED (missing) Negative results for this organism do not preclude infection with this organism and may require additional laboratory testing (e.g., bacterial and viral culture, immunofluorescence, and radiography) when evaluating a patient with possible respiratory tract infection. CORONAVIRUS 229E-RESP PCR 2024-11-27 07:05 [facility] NOT DETECTED (missing) Negative results in the setting ofa respiratory illness may be due to infection with pathogens not detected by this test, or lower respiratory tract infection that may not be detected by nasopharyngeal specimen. CORONAVIRUS HKU1-RESP PCR 2024-11-27 07:05 [facility] NOT DETECTED (missing) Negative results in the setting ofa respiratory illness may be due to infection with pathogens not detected by this test, or lower respiratory tract infection that may not be detected by nasopharyngeal specimen. CORONAVIRUS [id number]-KKBC PCR 2024-11-27 07:05 [facility] NOT DETECTED (missing) Negative results in the setting ofa respiratory illness may be due to infection with pathogens not detected by this test, or lower respiratory tract infection that may not be detected by nasopharyngeal specimen. CORONAVIRUS NJ58-PUNJ PCR 2024-11-27 07:05 [facility] NOT DETECTED (missing) Negative results in the setting ofa respiratory illness may be due to infection with pathogens not detected by this test, or lower respiratory tract infection that may not be detected by nasopharyngeal specimen. HUMAN METAPNEUMOVIRUS 2024-11-27 07:05 [facility] NOT DETECTED (missing) Negative results in the setting ofa respiratory illness may be due to infection with pathogens not detected by this test, or lower respiratory tract infection that may not be detected by nasopharyngeal specimen. INFLUENZA B - RESP PCR PANEL 2024-11-27 07:05 [facility] NOT DETECTED (missing) Negative results in the setting ofa respiratory illness may be due to infection with pathogens not detected by this test, or lower respiratory tract infection that may not be detected by nasopharyngeal specimen. PARAINFLUENZA VIRUS 1 2024-11-27 07:05 [facility] NOT DETECTED (missing) Negative results in the setting ofa respiratory illness may be due to infection with pathogens not detected by this test, or lower respiratory tract infection that may not be detected by nasopharyngeal specimen. PARAINFLUENZA VIRUS 2 2024-11-27 07:05 [facility] NOT DETECTED (missing) Negative results in the setting ofa respiratory illness may be due to infection with pathogens not detected by this test, or lower respiratory tract infection that may not be detected by nasopharyngeal specimen. PARAINFLUENZA VIRUS 3 2024-11-27 07:05 [facility] NOT DETECTED (missing) Negative results in the setting ofa respiratory illness may be due to infection with pathogens not detected by this test, or lower respiratory tract infection that may not be detected by nasopharyngeal specimen. PARAINFLUENZA VIRUS 4 2024-11-27 07:05 [facility] NOT DETECTED (missing) Negative results in the setting ofa respiratory illness may be due to infection with pathogens not detected by this test, or lower respiratory tract infection that may not be detected by nasopharyngeal specimen. RHINOVIRUS/ENTEROVI MALACHI 2024-11-27 07:05 [facility] NOT DETECTED (missing) Negative results in the setting ofa respiratory illness may be due to infection with pathogens not detected by this test, or lower respiratory tract infection that may not be detected by nasopharyngeal specimen. RSV- RESP PCR PANEL 2024-11-27 07:05 [facility] NOT DETECTED (missing) Negative results in the setting ofa respiratory illness may be due to infection with pathogens not detected by this test, or lower respiratory tract infection that may not be detected by nasopharyngeal specimen. ADENOVIRUS - RESP PCR PANEL 2024-11-27 07:05 [facility] NOT DETECTED (missing) Y YES Negative results in the setting ofa respiratory illness may be due to infection with pathogens not detected by this test, or lower respiratory tract infection that may not be detected by nasopharyngeal specimen. Result panel 2 GLUCOSE, WHOLE BLOOD 2024-11-27 08:41 [facility] > 600 (missing) (missing) Result panel 3 ABNORMAL LYMPHS % (MANUAL) 2024-11-27 08:49 [facility] 0 % (missing) BASOPHILS # (MANUAL) 2024-11-27 08:49 [facility] 0.0 10 3/ul (missing) EOSINOPHILS # (MANUAL) 2024-11-27 08:49 [facility] 0.0 10 3/ul (missing) BILIRUBIN,TOTAL 2024-11-27 08:49 [facility] 0.4 mg /dl As of September 2022 testing method has changed, this may include reference ranges. ALBUMIN/GLOBULIN RATIO 2024-11-27 08:49 [facility] 0.9 (missing) (missing) MONOCYTES # (MANUAL) 2024-11-27 08:49 [facility] 1.2 10 3/ul (missing) CREATININE 2024-11-27 08:49 [facility] 1.6 mg/dl As of September 2022 testing method has changed, this may include reference ranges. LYMPHOCYTES # (MANUAL) 2024-11-27 08:49 [facility] 1.8 10 3/ul (missing) LACTIC ACID, VENOUS 2024-11-27 08:49 [facility] 1.8 mmol/l N As of September 2022 testing method has changed, this may include reference ranges. AST ASPARTATE AMINOTRANSFERASE 2024-11-27 08:49 [facility] 10 iu/l As of September 2022 testing method has changed, this may include reference ranges. HGB - HEMOGLOBIN 2024-11-27 08:49 [facility] 10.8 g /dl (missing) TOTAL CELLS COUNTED 2024-11-27 08:49 [facility] 100 (missing) (missing) MEAN PLATELET VOLUME 2024-11-27 08:49 [facility] 11.1 fl (missing) SODIUM 2024-11-27 08:49 [facility] 117 mmol/l Critical result NA 117 mmol/L called to and read back by ADAMARIS Pool/RN/ED at 27-Nov-2024 09:15 by trevon. RED CELL DISTRIBUTION WIDTH 2024-11-27 08:49 [facility] 12.4 % (missing) ALKALINE PHOSPHATASE 2024-11-27 08:49 [facility] 126 iu/l As of September 2022 testing method has changed, this may include reference ranges. CARBON DIOXIDE - CO2 2024-11-27 08:49 [facility] 14 mmol/l As of September 2022 testing method has changed, this may include reference ranges. BAND NEUTROPHILS % (MANUAL) 2024-11-27 08:49 [facility] 16 % (missing) LIPASE 2024-11-27 08:49 [facility] 16 u/l As of September 2022 testing method has changed, this may include reference ranges. PLT - PLATELET COUNT 2024-11-27 08:49 [facility] 228 10 3/ul (missing) NEUTROPHILS # (MANUAL) 2024-11-27 08:49 [facility] 26.4 10 3/ul (missing) ANION GAP 2024-11-27 08:49 [facility] 27.0 (missing ) (missing) MEAN CORPUSCULAR HEMOGLOBIN 2024-11-27 08:49 [facility] 27.1 pg (missing) WHITE BLOOD COUNT 2024-11-27 08:49 [facility] 29.3 x10 3/ul (missing) ALBUMIN 2024-11-27 08:49 [facility] 3.5 g/dl As of September 2022 testing method has changed, this may include reference ranges. POTASSIUM 2024-11-27 08:49 [facility] 3.9 mmol/l As of September 2022 testing method has changed, this may include reference ranges. RED BLOOD COUNT 2024-11-27 08:49 [facility] 3.98 10 6/ul (missing) HCT - HEMATOCRIT 2024-11-27 08:49 [facility] 32.4 % (missing) MEAN CORPUSCULAR HGB CONC 2024-11-27 08:49 [facility] 33.3 g/dl (missing) GFR - MDRD 2024-11-27 08:49 [facility] 35 (missin g) Social History date description facility
[2024-11-27 12:16] LABS: HCT - HEMATOCRIT 28.8 % (37.0-47.0); HGB - HEMOGLOBIN 9.8 g/dL (12.0-16.0); MEAN PLATELET VOLUME 10.9 fL (7.9-10.8); NRBC ABSOLUTE COUNT (AUTO) 0.00 x10^3/uL; NUCLEATED RED BLOOD CELLS AUTO 0.0 /100WBC; PLT - PLATELET COUNT 214 10^3/uL (130-450); RED CELL DISTRIBUTION WIDTH 12.2 % (12.0-15.0)
[2024-11-27] MEDS ORDERED: SODIUM CHLORIDE FLUSH 0.9% 10 ML SYRINGE IVP PRN ×2 (12:22→22:04)
[2024-11-27 12:51] LABS: ALT ALANINE AMINOTRANSFERASE 7.0 IU/L (10-60); AST ASPARTATE AMINOTRANSFERASE 9.0 IU/L (10-42); BUN - BLOOD UREA NITROGEN 33.0 mg/dL (6-20); CARBON DIOXIDE - CO2 21.0 mmol/L (21-32); CREATININE 1.2 mg/dL (0.6-1.3); GFR - MDRD 49.0 (>89)
[2024-11-27] MEDS: NS W/20 MEQ KCL 1,000 ML IV STA (12:59)
[2024-11-27] MEDS ORDERED: POTASSIUM CHLORIDE INJ 20 MEQ in SODIUM CHLORIDE 0.9% 1,000 ML IV SCH (13:00)
[2024-11-27 14:07] LABS: VBG BASE EXCESS -8.3 mmol/L (-2 - +2); VBG PCO2 28.8 mmHg (41-51); VBG PH 7.377 (7.31-7.41); VBG PO2 43.2 mmHg (25-47); VBG TOTAL CO2 17.9 mmol/L (24-29)
[2024-11-27 14:16] LABS: BUN - BLOOD UREA NITROGEN 31.0 mg/dL (6-20); CARBON DIOXIDE - CO2 20.0 mmol/L (21-32); CREATININE 1.0 mg/dL (0.6-1.3); GFR - MDRD 61.0 (>89)
[2024-11-27] MEDS: PIPERACILLIN/TAZOBACTAM 3.375 GM in SODIUM CHLORIDE 0.9% MINIBAG 100 ML IV ONE (14:24)
[2024-11-27] MEDS: POTASSIUM CHLOR 10 MEQ/100 ML 10 MEQ/100 ML BAG IV SCH ×2 (14:26→16:53)
[2024-11-27] MEDS: VANCOMYCIN INJ 2 GM in SODIUM CHLORIDE 0.9% 500 ML IV ONE (14:26)
--- NOTE | 2024-11-27 14:29 | PHARMACY PROGRESS NOTE ---
Best Possible Medication History Admit Date and Time: 11/27/24 [id number] Home Medications Medication Instructions Recorded Confirmed Type No Known Home Medications 11/27/2408/16 History Processed by: Pharmacy Medications reviewed in ED?: No Medication History completed: Yes Patient Interview: Completed (CLINICAL OPERATIONS CONSULTANTDEBI) Secondary Source(s): Insurance records [facility] Statement: As the person ultimately responsible for medication therapy, providers are able to order a medication from an existing home medication list in [facility] via the "Reconcile Routine" prior to Confirmation of that medication by senior safety support manager. Such practice is discouraged except when the physician, in their clinical judgment, deems that a medical need exists for a medication without regard to previous use.
--- NOTE | 2024-11-27 14:49 | PHARMACY PROGRESS NOTE ---
Vancomycin Therapy Monitoring Patient Information Vancomycin Pt Height (inches): 66.5 Vancomycin Patient Weight (kg): 107 Vanco Rx Serum Creatinine (mg/dL): 1.0 Vancomycin Therapy BUN (mg/dL): 31 Vancomycin Therapy Calculated Creatinine Cl (ml/min): 91 Concurrent Antibiotics: ZOSYN Vancomycin Therapy Goals Treatment Indication: PYELONEPHRITIS Vancomycin Target Range: Vancomycin AUC Target Range 400-600 mcg*h/ml Assessment of Current Therapy Vancomycin Loading Dose (GM, if applicable): 2 G X 1 @ 1400 Plan: New Regimen (Enter new dose and interval): BEGIN MAINTENANCE DOSE 1.5 G Q12H FOR ESTIMATED AUC 571 Vancomycin Level Recommendation: Level not necessary at this time (EMPIRIC TREATMENT, WILL DETERMINE APPROPRIATENESS OF LEVEL AFTER FURTHER WORKUP) Areas for additonal monitoring Areas for additional monitoring: Therapy de-escalation based on culture results and Acute Kidney Injury
--- NOTE | 2024-11-27 15:54 | HISTORY & PHYSICAL EXAMINATION ---
Chief Complaint Chief Complaint Chief Complaint: nausea and vomiting History of Present Illness Admitted From Admitted From:: home History Obtained From Records Reviewed: EHR History obtained from: patient Exam Limitations: none History of Present Illness HPI Comment/Other: 44 yo F with h/o DM2, neuropathy, HTN, GERD, hemorrhoids presenting with nausea and vomiting for a few days. She reports polydypsia and polyuria. Fever to 101 at home. No diarrhea. No dysuria, no cough. She complains of pain in LLQ/ L flank that is worse when she leans forward better lying on back. No blood in urine or stool, no melena. In the ED she vomited coffee ground material that was gastroccult positive. She does state she has been taking some ibuprofen this week but unable to quantify exactly how much. She was previously treated with insulin but has been off this med for approx 5 years and has not follow up with a PMD during this period. Also off all other meds. Denies any h/o kidney problems. Regular menses, had period last week. In the ED, pt was found to have DKA, glu 860s. She was given 4 L NS and started on insulin drip. Meds/Allgy Home Medications Ambulatory Orders Medication Instructions Recorded Confirmed No Known Home Medications 11/27/24 090 08/16 Allergies Allergies Allergy/AdvReac Type Severity Reaction Status Date / Time No Known Drug Allergies Allergy Verified 11/27/24 07:01 PFSH Active Problems All Active Problems (Updated 11/27/24 @ 16:12 by Mark León MD) Renal abscess, left (Acute) DKA (diabetic ketoacidosis) (Chronic) Medical History Medical History (Updated 11/27/24 @ 16:12 by Mark León MD) Hx of essential hypertension Hx of diabetes mellitus Social History Social History (Updated 01/06/24 @ 09:54 by Jaspal Mendosa RN) Smoking Status: Smoker current status unk If you are a former smoker, when did you quit? (Date/Year): Jan 2016 Number of Years Smoked: 24 Second hand tobacco smoke exposure: No Do you dip or chew tobacco?: No Do you vape?: No Patient requests smoking cessation consult: Yes Living arrangement: At home Level: Independent Do you feel safe in your home environment?: Yes History of physical, verbal, emotional, or financial abuse?: No ETOH Use: None Substance Use: denies use POLST Patient has POLST: No Review of Systems Status of ROS: 10 or more systems reviewed and unremarkable except as noted in history and below Exam Exam Vital Signs: Vital Signs x48h Temp Pulse Pulse Resp BP BP Pulse Ox 11/27/24 15:00 111 H 37 H 150/91 H 98 11/27/24 14:00 112 H 25 H 145/85 H 98 11/27/24 13:00 109 H 32 H 139/79 H 100 11/27/24 12:30 36.5 C 108 H 24 139/79 H 100 11/27/24 11:47 113 H 32 H 155/85 H 98 11/27/24 11:00 111 H 26 H 143/82 H 100 11/27/24 10:00 107 H 36 H 149/81 H 99 11/27/24 09:56 106 H 22 142/78 H 100 11/27/24 09:25 107 H 31 H 154/97 H 99 11/27/24 09:09 37.0 C 105 H 36 H 141/78 H 100 11/27/24 08:51 115 H 32 H 137/82 H 99 middle aged woman lying in bed, NAD, sclera anicteric, MMM, no thyromegaly LCTAB, nonlabored cardiac: mild tachy, regular, S1S2, no edema abd soft, obese, tender to deep palpation LLQ, no guarding, BS+, no mass, no CVA tenderness AAOx3, CN 2-12 intact, strength 5/5 UE and LE, normal tone, no tremor Conclusion/Plan Problem List (1) DKA (diabetic ketoacidosis): Plan 1. DM2 with DKA: initial Glu 860s, bicarb 14, AG 27. Urine and serum ketones positive. Pt has been off insulin for some years. Acute trigger possibly kidney abscess vs bleed or due to chronically untreated DM. Sugars trending down, gap improving, down to 15 on last check. K alright at 3.6- will replete per protocol. - insulin drip - NS + 20 mEq/L KCl 200 ml/hr - trend bmp, VBG, mag, phos q 2 hrs, POC glu q 1 hr - add dextrose to ivf when glu < 250 - stop insulin drip and transition to basal-bolus subq regimen once AG closes and bicarb improved and pt is eating. Plan lantus 20 units q day, lispro 6 TID with meals. - remainder per DKA protocol 2. L intrarenal abscess, r/o capsular rupture with hematoma, r/o sepsis due to abscess: hemodynamically stable. Tachycardia improving and likely due to volume depletion from DKA. wbc 29. Afebrile here but reported fever to 101 at home. No reports of trauma to suggest renal injury or laceration. - appreciate urology input- discussed case with Dr. León- imaging more suggestive of hematoma. Plan abx, cultures, repeat CT in 8-72 hrs. - pip-tazo and vancomycin - blood cx, ucx - if signs of worsening sepsis, broaden to carbapenem and consider transfer for IR drainage vs surgical intervention - serial abx exams 3. vomiting, hematemesis, acute blood loss anemia: gastroccult positive emesis in ED. No vomiting since arrival to floor. Last hgb in our system is from 2021 and was 14.7 at that time. Now hgb 10.8-> 9.8. Significant dilutional component after 4 L NS. No menlena so doubt fast or large bleed. Suspect gastritis, consider PUD vs AVM. - ppi iv BID - NPO - H/H q 8 hrs, transfuse if < 7 - if further drop in H/H or signs of fast bleed, GI consult and transfer to larger facility 4. HTN: off meds. - monitor 5. trichomoniasis: Pt did not offer any complaints but UA noted trichomonas. - flagyl 500 BID x 7 days. - offer partner treatment - obtain further history from pt dvt ppx: SCDs given hematemesis. Dispo: Lives at home with who is HCP: Juan Caitie. Lab Results Lab results reviewed: Yes 11/27/24 12:06 11/27/24 13:58 Diagnostic Imaging Results Diagnostic Imaging Results Comments: CT a/p: IMPRESSION: 5.1 cm hypoattenuating left renal hypoattenuating region. Adjacent 13.9 cm hyperdense left renal capsular collection. Given concern for infection, this could represent an intrarenal abscess with capsular rupture and hematoma. Other considerations include underlying renal lesion with capsular rupture or a renal laceration. Edema and suspected hemorrhage extends along the left retroperitoneum and mesenteric root If there clinical concern for bleeding and trauma, multiphase CT could be used to assess for extravasation. No hydronephrosis. Mild bladder wall thickening, correlate urinalysis. Other findings above. Reviewed by: Rios Leon MD on 11/27/2024 11:49 AM PDT
[2024-11-27 16:11] LABS: VBG PCO2 29.0 mmHg (41-51); VBG PH 7.424 (7.31-7.41)
[2024-11-27 16:12] LABS: VBG PO2 59.8 mmHg (25-47); VBG TOTAL CO2 20.1 mmol/L (24-29)
[2024-11-27 16:13] LABS: VBG BASE EXCESS -5.4 mmol/L (-2 - +2)
--- NOTE | 2024-11-27 16:14 | CONSULTATION NOTE ---
Chief Complaint Chief Complaint Chief Complaint: nausea/vomiting History of Present Illness Admitted From Admitted From:: ER History Obtained From Records Reviewed: EMR History obtained from: patient Exam Limitations: none History of Present Illness HPI Comment/Other: Zoya is a 44-year-old morbidly obese type II diabetic woman who has no urological history who presented to the hospital today with nausea and vomiting. She states she has had nausea vomiting for a few days and fever 201 at home along with left lower quadrant and flank pain. She states she was treated with insulin for diabetes but she stopped taking it herself 5 years ago and has not followed up with a doctor since then. In the ER she was found to have diabetic ketoacidosis with glucose almost 900. She was admitted by the hospitalist team to the ICU for further management. She was noted to have a leukocytosis to 29,000 Her urinalysis shows trichomonas but no other evidence of infection. A CT scan was performed which showed a subcapsular large renal lesion versus abscess extending virtually throughout the entirety of the lateral aspect of her left kidney. There is inflammation and edema around the kidney. There is some retroperitoneal lymphadenopathy nearby. She denies prior urological evaluation. She has been started on Zosyn and vancomycin. She is undergoing DKA protocol. Blood cultures have been sent. She is tachycardic but otherwise her vitals are strong with good blood pressure and has not been febrile this admission PFSH Active Problems All Active Problems (Updated 11/27/24 @ 16:12 by Mark León MD) Renal abscess, left (Acute) DKA (diabetic ketoacidosis) (Chronic) Medical History Medical History (Updated 11/27/24 @ 16:12 by Mark León MD) Hx of essential hypertension Hx of diabetes mellitus Social History Social History (Updated 11/27/24 @ 16:13 by Preston Abbott MD) Smoking Status: Smoker current status unk If you are a former smoker, when did you quit? (Date/Year): Jan 2016 Number of Years Smoked: 24 Second hand tobacco smoke exposure: No Do you dip or chew tobacco?: No Do you vape?: No Patient requests smoking cessation consult: Yes Living arrangement: At home Level: Independent Do you feel safe in your home environment?: Yes History of physical, verbal, emotional, or financial abuse?: No ETOH Use: None Substance Use: denies use POLST Patient has POLST: No Meds/Allgy Home Medications Ambulatory Orders Medication Instructions Recorded Confirmed No Known Home Medications 11/27/2408/16 Allergies Allergies Allergy/AdvReac Type Severity Reaction Status Date / Time No Known Drug Allergies Allergy Verified 11/27/24 07:01 Results Lab Results Lab results reviewed: Yes 11/27/24 12:06 11/27/24 17:58 Other Lab Results: Lab Results x24hrs 11/27/24 11/27/24 11/27/24 Range/Units 16:03 15:03 14:02 WBC (4.8-10.8) x10^3/uL RBC (4.20-5.40) 10^6/uL Hgb (12.0-16.0) g/dL Hct (37.0-47.0) % MCV (81.0-99.0) fL MCH (27.0-31.0) pg MCHC (32.0-36.0) g/dL RDW (12.0-15.0) % Plt Count (130-450) 10^3/uL MPV (7.9-10.8) fL Neut # (Auto) Lymph # (Auto) Bacon # (Auto) Eos # (Auto) Baso # (Auto) Absolute Nucleated RBC Total Counted Band Neuts % (Manual) (0 - 10) % Abnorm Lymph % (Manual) % Nucleated RBC % Neutrophils # (Manual) (1.5-6.6) 10^3/uL Lymphocytes # (Manual) (1.5-3.5) 10^3/uL Monocytes # (Manual) (0.0-1.0) 10^3/uL Eosinophils # (Manual) (0-0.7) 10^3/uL Basophils # (Manual) (0-0.1) 10^3/uL Differential Comment WBC Morphology (NORMAL) Platelet Estimate (NORMAL) Platelet Morphology (NORMAL) RBC Morph Micro Appear (NORMAL) VBG pH (7.31-7.41) VBG pCO2 (41-51) mmHg VBG pO2 (25-47) mmHg VBG HCO3 (23-28) mmol/L VBG Total CO2 (24-29) mmol/L VBG O2 Saturation (60-80) % VBG Base Excess (-2 - +2) mmol/L Sodium (135-145) mmol/L Potassium (3.5-4.5) mmol/L Chloride (101-111) mmol/L Carbon Dioxide (21-32) mmol/L Anion Gap (6-13) BUN (6-20) mg/dL Creatinine (0.6-1.3) mg/dL Estimated GFR (MDRD) (>89) Glucose (74-104) mg/dL POC Whole Bld Glucose 303 436 442 (70-100) mg/dL Lactic Acid (0.5-2.2) mmol/L Calcium (8.5-10.3) mg/dL Magnesium (1.7-2.3) mg/dL Total Bilirubin (0.2-1.0) mg/dL AST (10-42) IU/L ALT (10-60) IU/L Alkaline Phosphatase (42-121) IU/L Total Protein (6.4-8.9) g/dL Albumin (3.2-5.5) g/dL Globulin (2.1-4.2) g/dL Albumin/Globulin Ratio (1.0-2.2) Lipase (11-82) U/L Urine Color Urine Clarity (CLEAR) Urine pH (5.0-7.5) PH Ur Specific [place] (1.002-1.030) Urine Protein (NEGATIVE) mg/dL Urine Glucose (UA) (NEGATIVE) mg/dL Urine Ketones (NEGATIVE) mg/dL Urine Occult Blood (NEGATIVE) Urine Nitrite (NEGATIVE) Urine Bilirubin (NEGATIVE) Urine Urobilinogen (NORMAL) E.U./dL Ur Leukocyte Esterase (NEGATIVE) Urine RBC (0-5) /HPF Urine WBC (0-5) /HPF Ur Squamous Epith Cells (<= Few) Urine Bacteria (None Seen) /HPF Urine Trichomonas (None Seen) Ur Microscopic Review Urine Culture Comments Nasal Adenovirus (PCR) Nasal B. parapertussis DNA (PCR) Nasal Coronavir 229E PCR Nasal Coronavir HKU1 PCR Nasal Coronavir NL63 PCR Nasal Coronavir OC43 PCR Nasal Enterovir/Rhinovir PCR Nasal Influenza B PCR Nasal Influenza A PCR Nasal Parainfluen 1 PCR Nasal Parainfluen 2 PCR Nasal Parainfluen 3 PCR Nasal Parainfluen 4 PCR Nasal RSV (PCR) Nasal B.pertussis DNA PCR Nasal C.pneumoniae (PCR) Jaspreet Human Metapneumo PCR Nasal M.pneumoniae (PCR) Nasal SARS-CoV-2 (PCR) Gastric Occult Blood (Negative) Serum Ketones (NEGATIVE) 11/27/24 11/27/24 11/27/24 Range/Units 13:58 12:58 12:06 WBC 24.4 H (4.8-10.8) x10^3/uL RBC 3.54 L (4.20-5.40) 10^6/uL Hgb 9.8 L (12.0-16.0) g/dL Hct 28.8 L (37.0-47.0) % MCV 81.4 (81.0-99.0) fL MCH 27.7 (27.0-31.0) pg MCHC 34.0 (32.0-36.0) g/dL RDW 12.2 (12.0-15.0) % Plt Count 214 (130-450) 10^3/uL MPV 10.9 H (7.9-10.8) fL Neut # (Auto) 21.1 H Lymph # (Auto) 0.9 L Bacon # (Auto) 2.1 H Eos # (Auto) 0.0 Baso # (Auto) 0.0 Absolute Nucleated RBC 0.00 Total Counted Band Neuts % (Manual) (0 - 10) % Abnorm Lymph % (Manual) % Nucleated RBC % 0.0 Neutrophils # (Manual) (1.5-6.6) 10^3/uL Lymphocytes # (Manual) (1.5-3.5) 10^3/uL Monocytes # (Manual) (0.0-1.0) 10^3/uL Eosinophils # (Manual) (0-0.7) 10^3/uL Basophils # (Manual) (0-0.1) 10^3/uL Differential Comment WBC Morphology (NORMAL) Platelet Estimate (NORMAL) Platelet Morphology (NORMAL) RBC Morph Micro Appear (NORMAL) VBG pH 7.377 (7.31-7.41) VBG pCO2 28.8 L (41-51) mmHg VBG pO2 43.2 (25-47) mmHg VBG HCO3 17.1 L (23-28) mmol/L VBG Total CO2 17.9 L (24-29) mmol/L VBG O2 Saturation 69.0 (60-80) % VBG Base Excess -8.3 L (-2 - +2) mmol/L Sodium 126 L 126 L (135-145) mmol/L Potassium 3.6 3.6 (3.5-4.5) mmol/L Chloride 91 L 90 L (101-111) mmol/L Carbon Dioxide 20 L 21 (21-32) mmol/L Anion Gap 15.0 H 15.0 H (6-13) BUN 31 H 33 H (6-20) mg/dL Creatinine 1.0 1.2 (0.6-1.3) mg/dL Estimated GFR (MDRD) 61 L 49 L (>89) Glucose 464 H 543 H* (74-104) mg/dL POC Whole Bld Glucose 451 (70-100) mg/dL Lactic Acid (0.5-2.2) mmol/L Calcium 8.0 L 7.9 L (8.5-10.3) mg/dL Magnesium 1.9 (1.7-2.3) mg/dL Total Bilirubin 0.3 (0.2-1.0) mg/dL AST 9 L (10-42) IU/L ALT 7 L (10-60) IU/L Alkaline Phosphatase 108 (42-121) IU/L Total Protein 6.6 (6.4-8.9) g/dL Albumin 3.1 L (3.2-5.5) g/dL Globulin 3.5 (2.1-4.2) g/dL Albumin/Globulin Ratio 0.9 L (1.0-2.2) Lipase (11-82) U/L Urine Color Urine Clarity (CLEAR) Urine pH (5.0-7.5) PH Ur Specific [place] (1.002-1.030) Urine Protein (NEGATIVE) mg/dL Urine Glucose (UA) (NEGATIVE) mg/dL Urine Ketones (NEGATIVE) mg/dL Urine Occult Blood (NEGATIVE) Urine Nitrite (NEGATIVE) Urine Bilirubin (NEGATIVE) Urine Urobilinogen (NORMAL) E.U./dL Ur Leukocyte Esterase (NEGATIVE) Urine RBC (0-5) /HPF Urine WBC (0-5) /HPF Ur Squamous Epith Cells (<= Few) Urine Bacteria (None Seen) /HPF Urine Trichomonas (None Seen) Ur Microscopic Review Urine Culture Comments Nasal Adenovirus (PCR) Nasal B. parapertussis DNA (PCR) Nasal Coronavir 229E PCR Nasal Coronavir HKU1 PCR Nasal Coronavir NL63 PCR Nasal Coronavir OC43 PCR Nasal Enterovir/Rhinovir PCR Nasal Influenza B PCR Nasal Influenza A PCR Nasal Parainfluen 1 PCR Nasal Parainfluen 2 PCR Nasal Parainfluen 3 PCR Nasal Parainfluen 4 PCR Nasal RSV (PCR) Nasal B.pertussis DNA PCR Nasal C.pneumoniae (PCR) Jaspreet Human Metapneumo PCR Nasal M.pneumoniae (PCR) Nasal SARS-CoV-2 (PCR) Gastric Occult Blood (Negative) Serum Ketones (NEGATIVE) 11/27/24 11/27/24 11/27/24 Range/Units 11:08 10:56 10:53 WBC (4.8-10.8) x10^3/uL RBC (4.20-5.40) 10^6/uL Hgb (12.0-16.0) g/dL Hct (37.0-47.0) % MCV (81.0-99.0) fL MCH (27.0-31.0) pg MCHC (32.0-36.0) g/dL RDW (12.0-15.0) % Plt Count (130-450) 10^3/uL MPV (7.9-10.8) fL Neut # (Auto) Lymph # (Auto) Bacon # (Auto) Eos # (Auto) Baso # (Auto) Absolute Nucleated RBC Total Counted Band Neuts % (Manual) (0 - 10) % Abnorm Lymph % (Manual) % Nucleated RBC % Neutrophils # (Manual) (1.5-6.6) 10^3/uL Lymphocytes # (Manual) (1.5-3.5) 10^3/uL Monocytes # (Manual) (0.0-1.0) 10^3/uL Eosinophils # (Manual) (0-0.7) 10^3/uL Basophils # (Manual) (0-0.1) 10^3/uL Differential Comment WBC Morphology (NORMAL) Platelet Estimate (NORMAL) Platelet Morphology (NORMAL) RBC Morph Micro Appear (NORMAL) VBG pH (7.31-7.41) VBG pCO2 (41-51) mmHg VBG pO2 (25-47) mmHg VBG HCO3 (23-28) mmol/L VBG Total CO2 (24-29) mmol/L VBG O2 Saturation (60-80) % VBG Base Excess (-2 - +2) mmol/L Sodium 125 L (135-145) mmol/L Potassium 3.5 (3.5-4.5) mmol/L Chloride 87 L (101-111) mmol/L Carbon Dioxide 17 L (21-32) mmol/L Anion Gap 21.0 H (6-13) BUN 35 H (6-20) mg/dL Creatinine 1.3 (0.6-1.3) mg/dL Estimated GFR (MDRD) 45 L (>89) Glucose 647 H* (74-104) mg/dL POC Whole Bld Glucose > 600 (70-100) mg/dL Lactic Acid (0.5-2.2) mmol/L Calcium 8.0 L (8.5-10.3) mg/dL Magnesium (1.7-2.3) mg/dL Total Bilirubin (0.2-1.0) mg/dL AST (10-42) IU/L ALT (10-60) IU/L Alkaline Phosphatase (42-121) IU/L Total Protein (6.4-8.9) g/dL Albumin (3.2-5.5) g/dL Globulin (2.1-4.2) g/dL Albumin/Globulin Ratio (1.0-2.2) Lipase (11-82) U/L Urine Color YELLOW Urine Clarity CLEAR (CLEAR) Urine pH 6.0 (5.0-7.5) PH Ur Specific [place] 1.020 (1.002-1.030) Urine Protein TRACE (NEGATIVE) mg/dL Urine Glucose (UA) >=1000 H (NEGATIVE) mg/dL Urine Ketones >=80 H (NEGATIVE) mg/dL Urine Occult Blood LARGE H (NEGATIVE) Urine Nitrite NEGATIVE (NEGATIVE) Urine Bilirubin NEGATIVE (NEGATIVE) Urine Urobilinogen 0.2 (NORMAL) (NORMAL) E.U./dL Ur Leukocyte Esterase NEGATIVE (NEGATIVE) Urine RBC 0-5 (0-5) /HPF Urine WBC 0-3 (0-5) /HPF Ur Squamous Epith Cells FEW Squamous (<= Few) Urine Bacteria Few (None Seen) /HPF Urine Trichomonas PRESENT H (None Seen) Ur Microscopic Review INDICATED Urine Culture Comments NOT INDICATED Nasal Adenovirus (PCR) Nasal B. parapertussis DNA (PCR) Nasal Coronavir 229E PCR Nasal Coronavir HKU1 PCR Nasal Coronavir NL63 PCR Nasal Coronavir OC43 PCR Nasal Enterovir/Rhinovir PCR Nasal Influenza B PCR Nasal Influenza A PCR Nasal Parainfluen 1 PCR Nasal Parainfluen 2 PCR Nasal Parainfluen 3 PCR Nasal Parainfluen 4 PCR Nasal RSV (PCR) Nasal B.pertussis DNA PCR Nasal C.pneumoniae (PCR) Jaspreet Human Metapneumo PCR Nasal M.pneumoniae (PCR) Nasal SARS-CoV-2 (PCR) Gastric Occult Blood (Negative) Serum Ketones (NEGATIVE) 11/27/24 11/27/24 11/27/24 Range/Units 10:45 08:49 08:41 WBC 29.3 H (4.8-10.8) x10^3/uL RBC 3.98 L (4.20-5.40) 10^6/uL Hgb 10.8 L (12.0-16.0) g/dL Hct 32.4 L (37.0-47.0) % MCV 81.4 (81.0-99.0) fL MCH 27.1 (27.0-31.0) pg MCHC 33.3 (32.0-36.0) g/dL RDW 12.4 (12.0-15.0) % Plt Count 228 (130-450) 10^3/uL MPV 11.1 H (7.9-10.8) fL Neut # (Auto) Not Reportable Lymph # (Auto) Not Reportable Bacon # (Auto) Not Reportable Eos # (Auto) Not Reportable Baso # (Auto) Not Reportable Absolute Nucleated RBC Not Reportable Total Counted 100 Band Neuts % (Manual) 16 H (0 - 10) % Abnorm Lymph % (Manual) 0 % Nucleated RBC % Not Reportable Neutrophils # (Manual) 26.4 H (1.5-6.6) 10^3/uL Lymphocytes # (Manual) 1.8 (1.5-3.5) 10^3/uL Monocytes # (Manual) 1.2 H (0.0-1.0) 10^3/uL Eosinophils # (Manual) 0.0 (0-0.7) 10^3/uL Basophils # (Manual) 0.0 (0-0.1) 10^3/uL Differential Comment MANUAL DIFFERENTIAL WBC Morphology NORMAL APPEARANCE (NORMAL) Platelet Estimate NORMAL (130-450,000) (NORMAL) Platelet Morphology NORMAL APPEARANCE (NORMAL) RBC Morph Micro Appear NORMAL APPEARANCE (NORMAL) VBG pH (7.31-7.41) VBG pCO2 (41-51) mmHg VBG pO2 (25-47) mmHg VBG HCO3 (23-28) mmol/L VBG Total CO2 (24-29) mmol/L VBG O2 Saturation (60-80) % VBG Base Excess (-2 - +2) mmol/L Sodium 117 L* (135-145) mmol/L Potassium 3.9 (3.5-4.5) mmol/L Chloride 76 L* (101-111) mmol/L Carbon Dioxide 14 L (21-32) mmol/L Anion Gap 27.0 H (6-13) BUN 38 H (6-20) mg/dL Creatinine 1.6 H (0.6-1.3) mg/dL Estimated GFR (MDRD) 35 L (>89) Glucose 867 H* (74-104) mg/dL POC Whole Bld Glucose > 600 (70-100) mg/dL Lactic Acid 1.8 (0.5-2.2) mmol/L Calcium 8.8 (8.5-10.3) mg/dL Magnesium (1.7-2.3) mg/dL Total Bilirubin 0.4 (0.2-1.0) mg/dL AST 10 (10-42) IU/L ALT 9 L (10-60) IU/L Alkaline Phosphatase 126 H (42-121) IU/L Total Protein 7.5 (6.4-8.9) g/dL Albumin 3.5 (3.2-5.5) g/dL Globulin 4.0 (2.1-4.2) g/dL Albumin/Globulin Ratio 0.9 L (1.0-2.2) Lipase 16 (11-82) U/L Urine Color Urine Clarity (CLEAR) Urine pH (5.0-7.5) PH Ur Specific [place] (1.002-1.030) Urine Protein (NEGATIVE) mg/dL Urine Glucose (UA) (NEGATIVE) mg/dL Urine Ketones (NEGATIVE) mg/dL Urine Occult Blood (NEGATIVE) Urine Nitrite (NEGATIVE) Urine Bilirubin (NEGATIVE) Urine Urobilinogen (NORMAL) E.U./dL Ur Leukocyte Esterase (NEGATIVE) Urine RBC (0-5) /HPF Urine WBC (0-5) /HPF Ur Squamous Epith Cells (<= Few) Urine Bacteria (None Seen) /HPF Urine Trichomonas (None Seen) Ur Microscopic Review Urine Culture Comments Nasal Adenovirus (PCR) Nasal B. parapertussis DNA (PCR) Nasal Coronavir 229E PCR Nasal Coronavir HKU1 PCR Nasal Coronavir NL63 PCR Nasal Coronavir OC43 PCR Nasal Enterovir/Rhinovir PCR Nasal Influenza B PCR Nasal Influenza A PCR Nasal Parainfluen 1 PCR Nasal Parainfluen 2 PCR Nasal Parainfluen 3 PCR Nasal Parainfluen 4 PCR Nasal RSV (PCR) Nasal B.pertussis DNA PCR Nasal C.pneumoniae (PCR) Jaspreet Human Metapneumo PCR Nasal M.pneumoniae (PCR) Nasal SARS-CoV-2 (PCR) Gastric Occult Blood POSITIVE A (Negative) Serum Ketones MODERATE H (NEGATIVE) 11/27/24 Range/Units 07:05 WBC (4.8-10.8) x10^3/uL RBC (4.20-5.40) 10^6/uL Hgb (12.0-16.0) g/dL Hct (37.0-47.0) % MCV (81.0-99.0) fL MCH (27.0-31.0) pg MCHC (32.0-36.0) g/dL RDW (12.0-15.0) % Plt Count (130-450) 10^3/uL MPV (7.9-10.8) fL Neut # (Auto) Lymph # (Auto) Bacon # (Auto) Eos # (Auto) Baso # (Auto) Absolute Nucleated RBC Total Counted Band Neuts % (Manual) (0 - 10) % Abnorm Lymph % (Manual) % Nucleated RBC % Neutrophils # (Manual) (1.5-6.6) 10^3/uL Lymphocytes # (Manual) (1.5-3.5) 10^3/uL Monocytes # (Manual) (0.0-1.0) 10^3/uL Eosinophils # (Manual) (0-0.7) 10^3/uL Basophils # (Manual) (0-0.1) 10^3/uL Differential Comment WBC Morphology (NORMAL) Platelet Estimate (NORMAL) Platelet Morphology (NORMAL) RBC Morph Micro Appear (NORMAL) VBG pH (7.31-7.41) VBG pCO2 (41-51) mmHg VBG pO2 (25-47) mmHg VBG HCO3 (23-28) mmol/L VBG Total CO2 (24-29) mmol/L VBG O2 Saturation (60-80) % VBG Base Excess (-2 - +2) mmol/L Sodium (135-145) mmol/L Potassium (3.5-4.5) mmol/L Chloride (101-111) mmol/L Carbon Dioxide (21-32) mmol/L Anion Gap (6-13) BUN (6-20) mg/dL Creatinine (0.6-1.3) mg/dL Estimated GFR (MDRD) (>89) Glucose (74-104) mg/dL POC Whole Bld Glucose (70-100) mg/dL Lactic Acid (0.5-2.2) mmol/L Calcium (8.5-10.3) mg/dL Magnesium (1.7-2.3) mg/dL Total Bilirubin (0.2-1.0) mg/dL AST (10-42) IU/L ALT (10-60) IU/L Alkaline Phosphatase (42-121) IU/L Total Protein (6.4-8.9) g/dL Albumin (3.2-5.5) g/dL Globulin (2.1-4.2) g/dL Albumin/Globulin Ratio (1.0-2.2) Lipase (11-82) U/L Urine Color Urine Clarity (CLEAR) Urine pH (5.0-7.5) PH Ur Specific [place] (1.002-1.030) Urine Protein (NEGATIVE) mg/dL Urine Glucose (UA) (NEGATIVE) mg/dL Urine Ketones (NEGATIVE) mg/dL Urine Occult Blood (NEGATIVE) Urine Nitrite (NEGATIVE) Urine Bilirubin (NEGATIVE) Urine Urobilinogen (NORMAL) E.U./dL Ur Leukocyte Esterase (NEGATIVE) Urine RBC (0-5) /HPF Urine WBC (0-5) /HPF Ur Squamous Epith Cells (<= Few) Urine Bacteria (None Seen) /HPF Urine Trichomonas (None Seen) Ur Microscopic Review Urine Culture Comments Nasal Adenovirus (PCR) NOT DETECTED Nasal B. parapertussis DNA (PCR) NOT DETECTED Nasal Coronavir 229E PCR NOT DETECTED Nasal Coronavir HKU1 PCR NOT DETECTED Nasal Coronavir NL63 PCR NOT DETECTED Nasal Coronavir OC43 PCR NOT DETECTED Nasal Enterovir/Rhinovir PCR NOT DETECTED Nasal Influenza B PCR NOT DETECTED Nasal Influenza A PCR NOT DETECTED Nasal Parainfluen 1 PCR NOT DETECTED Nasal Parainfluen 2 PCR NOT DETECTED Nasal Parainfluen 3 PCR NOT DETECTED Nasal Parainfluen 4 PCR NOT DETECTED Nasal RSV (PCR) NOT DETECTED Nasal B.pertussis DNA PCR NOT DETECTED Nasal C.pneumoniae (PCR) NOT DETECTED Jaspreet Human Metapneumo PCR NOT DETECTED Nasal M.pneumoniae (PCR) NOT DETECTED Nasal SARS-CoV-2 (PCR) NOT DETECTED Gastric Occult Blood (Negative) Serum Ketones (NEGATIVE) Diagnostic Imaging Results Diagnostic Imaging Results: positive Read independently Exam Exam Vital Signs: Vital Signs x48h Temp Pulse Pulse Resp BP BP Pulse Ox 11/27/24 15:00 111 H 37 H 150/91 H 98 11/27/24 14:00 112 H 25 H 145/85 H 98 11/27/24 13:00 109 H 32 H 139/79 H 100 11/27/24 12:30 36.5 C 108 H 24 139/79 H 100 11/27/24 11:47 113 H 32 H 155/85 H 98 11/27/24 11:00 111 H 26 H 143/82 H 100 11/27/24 10:00 107 H 36 H 149/81 H 99 11/27/24 09:56 106 H 22 142/78 H 100 11/27/24 09:25 107 H 31 H 154/97 H 99 11/27/24 09:09 37.0 C 105 H 36 H 141/78 H 100 11/27/24 08:51 115 H 32 H 137/82 H 99 NAD Obese left flank TTP Conclusion/Plan Problem List (1) Renal abscess, left: Plan: I directly interpreted her CT scan, blood work, etc. Overall Zoya is in very poor health. She has been avoiding healthcare for years. She is in significant DKA. I do believe she has an infection of her left kidney. This appears to be a subcapsular abscess. It is of course possible this is something else like a hemorrhage or a malignancy. Her leukocytosis and subjective fevers at home would point to more of a infectious process however Right now she is clinically stable and appears quite well at bedside. I think that any attempts to drain this abscess may not be very successful. I have discussed with the hospitalist team and I would agree with the management of broad-spectrum antibiotics with vancomycin and Zosyn along with blood cultures and urine cultures. She should remain on these antibiotics for now until culture sensitivity occurs if at all. I would recommend a repeat CT scan in 48 to 72 hours to assess further If however, she does worsen with concern for sepsis or septic shock then she may need transfer for drain placement. However, I do not think this is likely. We will monitor closely and I will follow along closely. Contact me at any time for questions or concerns Lab Results Lab results reviewed: Yes 11/27/24 12:06 11/27/24 17:58 Diagnostic Imaging Results Diagnostic Imaging Results: positive Read independently
[2024-11-27 16:23] LABS: BUN - BLOOD UREA NITROGEN 28.0 mg/dL (6-20); CARBON DIOXIDE - CO2 21.0 mmol/L (21-32); CREATININE 1.0 mg/dL (0.6-1.3); GFR - MDRD 61.0 (>89); PHOSPHORUS 1.5 mg/dL (2.5-5.0)
[2024-11-27] MEDS: SODIUM CHLORIDE FLUSH 0.9% 10 ML SYRINGE IVP SCH (16:53)
[2024-11-27] MEDS: PIPERACILLIN/TAZOBACTAM 3.375 GM in SODIUM CHLORIDE 0.9% MINIBAG 100 ML IV SCH (16:53)
[2024-11-27 18:06] LABS: VBG BASE EXCESS -3.7 mmol/L (-2 - +2); VBG PCO2 26.3 mmHg (41-51); VBG PH 7.484 (7.31-7.41); VBG PO2 68.6 mmHg (25-47); VBG TOTAL CO2 20.8 mmol/L (24-29)
[2024-11-27] MEDS: NS W/20 MEQ KCL 1,000 ML IV SCH (18:11)
[2024-11-27 18:15] LABS: BUN - BLOOD UREA NITROGEN 25.0 mg/dL (6-20); CARBON DIOXIDE - CO2 21.0 mmol/L (21-32); CREATININE 0.8 mg/dL (0.6-1.3); GFR - MDRD 79.0 (>89)
[2024-11-27 18:19] LABS: PHOSPHORUS 1.0 mg/dL (2.5-5.0)
[2024-11-27] MEDS: SODIUM PHOSPHATE 21 MMOL in SODIUM CHLORIDE 0.9% 250 ML IV ONE (18:29)
[2024-11-27] MEDS: INSULIN GLARGINE-YFGN 300 UNIT/3 ML PEN SUBQ ONE (19:01)
[2024-11-27] MEDS: INSULIN LISPRO 300 UNIT/3 ML PEN SUBQ SCH (19:01)
[2024-11-27 20:48] LABS: HCT - HEMATOCRIT 26.9 % (37.0-47.0); HGB - HEMOGLOBIN 9.0 g/dL (12.0-16.0)
[2024-11-27 20:53] LABS: VBG PH 7.493 (7.31-7.41)
[2024-11-27] MEDS: PANTOPRAZOLE 40 MG VIAL IVP SCH (21:01)
[2024-11-27] MEDS: CALCIUM GLUC 1,000MG/50ML-NACL 1,000 MG/50 ML BAG IV ONE (21:25)
[2024-11-27] MEDS ORDERED: ONDANSETRON ODT 4 MG TABLET TL PRN (22:04)
[2024-11-27] MEDS: ACETAMINOPHEN 325 MG TABLET PO PRN (22:43)
[2024-11-27] MEDS: ONDANSETRON 4 MG/2 ML VIAL IVP PRN (22:46)
[2024-11-28 01:18] LABS: VBG PH 7.477 (7.31-7.41)
[2024-11-28] MEDS: SODIUM CHLORIDE FLUSH 0.9% 10 ML SYRINGE IVP SCH (01:47)
[2024-11-28] MEDS: VANCOMYCIN INJ 1 GM, VANCOMYCIN INJ 500 MG in SODIUM CHLORIDE 0.9% 500 ML IV SCH (01:51)
[2024-11-28] MEDS: PROCHLORPERAZINE 10 MG/2 ML VIAL IVP PRN (03:19)
[2024-11-28 05:37] LABS: HCT - HEMATOCRIT 25.9 % (37.0-47.0); HGB - HEMOGLOBIN 8.5 g/dL (12.0-16.0); MEAN PLATELET VOLUME 10.7 fL (7.9-10.8); PLT - PLATELET COUNT 210 10^3/uL (130-450); RED CELL DISTRIBUTION WIDTH 12.5 % (12.0-15.0)
[2024-11-28 05:41] LABS: ABNORMAL LYMPHS % (MANUAL) 0 %; BASOPHILS # (MANUAL) 0.0 10^3/uL (0-0.1); EOSINOPHILS # (MANUAL) 0.0 10^3/uL (0-0.7)
[2024-11-28 05:57] LABS: ALT ALANINE AMINOTRANSFERASE 6.0 IU/L (10-60); AST ASPARTATE AMINOTRANSFERASE 7.0 IU/L (10-42); BUN - BLOOD UREA NITROGEN 18.0 mg/dL (6-20); CARBON DIOXIDE - CO2 18.0 mmol/L (21-32); CREATININE 0.7 mg/dL (0.6-1.3); GFR - MDRD 92.0 (>89); PHOSPHORUS 1.4 mg/dL (2.5-5.0)
[2024-11-28 05:59] LABS: BAND NEUTROPHILS % (MANUAL) 2 %; LYMPHOCYTES # (MANUAL) 1.6 10^3/uL (1.5-3.5); LYMPHOCYTES % (MANUAL) 8 %; MONOCYTES # (MANUAL) 1.2 10^3/uL (0.0-1.0); NEUTROPHILS # (MANUAL) 17.7 10^3/uL (1.5-6.6); RBC MORPHOLOGY (MULTIPLE) NORMAL APPEARANCE (NORMAL)
[2024-11-28 06:00] LABS: PLATELET ESTIMATE, MANUAL NORMAL (130-450,000) (NORMAL); PLATELET MORPHOLOGY NORMAL APPEARANCE (NORMAL); WBC MORPHOLOGY (MULTIPLE) NORMAL APPEARANCE (NORMAL)
[2024-11-28] MEDS: INSULIN LISPRO 300 UNIT/3 ML PEN SUBQ SCH ×3 (06:51→12:09)
[2024-11-28] MEDS: POTASSIUM CHLORIDE 20 MEQ TABLET PO ONE (08:53)
[2024-11-28] MEDS: NEUTRA-PHOS 250 MG TABLET PO SCH (08:54)
--- NOTE | 2024-11-28 09:30 | PROVIDER PROGRESS NOTE ---
Subjective Prog Note Date Prog Note Date: 11/28/24 Prog Note Time: 09:23 Subjective Subjective: Pt feels better today. Tolerating po intake. Mild nausea. No vomiting, no BM overnight. LLQ abd pain about stable. Current Medications Current Medications Current Medications: Current Medications Generic Name Dose Route Start Last Admin Trade Name Freq PRN Reason Stop Dose Admin Acetaminophen 650 mg 11/27/24 12:22 11/27/24 22:43 Acetaminophen 325 Mg Tablet PO 650 mg Q4HR PRN Administration Pain 1 to 4, or Fever Ceftriaxone Sodium 2 gm 11/28/24 09:00 11/28/24 08:54 Ceftriaxone 2 Gm Vial IVP 2 gm DAILY MARCIA Administration Potassium Chloride/Sodium Chloride 1,000 mls @ 100 mls/hr 11/27/24 17:00 11/28/24 01:47 Normal Saline 0.9% W/20 Meq Kcl IV 125 mls/hr .Q10H MARCIA Administration Insulin Human Lispro 1 - 9 unit 11/28/24 07:00 11/28/24 06:51 Insulin Lispro 300 Unit/3 Ml Pen SUBQ 5 unit Q4H MARCIA Administration Protocol Lisinopril 10 mg 11/28/24 09:00 11/28/24 08:54 Lisinopril 5 Mg Tablet PO 10 mg DAILY MARCIA Administration Metronidazole 500 mg 11/27/24 21:00 11/28/24 08:54 Metronidazole 250 Mg Tablet PO 12/04/24 20:59 500 mg BID MARCIA Administration Ondansetron HCl 4 mg 11/27/24 12:22 11/27/24 22:46 Ondansetron 4 Mg/2 Ml Vial IVP 4 mg Q6HR PRN Administration Nausea / Vomiting Ondansetron HCl 4 mg 11/27/24 22:04 Ondansetron Odt 4 Mg Tablet TL Q6HR PRN Nausea / Vomiting Pantoprazole Sodium 40 mg 11/27/24 21:00 11/28/24 08:54 Pantoprazole 40 Mg Vial IVP 40 mg BID MARCIA Administration Prochlorperazine Edisylate 10 mg 11/28/24 02:18 11/28/24 03:19 Prochlorperazine 10 Mg/2 Ml Vial IVP 10 mg Q6HR PRN Administration Nausea / Vomiting Sodium Chloride 10 ml 11/27/24 17:00 11/28/24 08:54 Sodium Chloride Flush 0.9% 10 Ml Syringe IVP 10 ml 0100,0900,1700 MARCIA Administration Sodium Chloride 10 ml 11/27/24 12:22 Sodium Chloride Flush 0.9% 10 Ml Syringe IVP PRN PRN NEEDED PER PROVIDER ORDERS Sodium Chloride 10 ml 11/27/24 22:04 Sodium Chloride Flush 0.9% 10 Ml Syringe IVP PRN PRN NEEDED PER PROVIDER ORDERS Sodium Chloride 10 ml 11/28/24 01:00 11/28/24 08:55 Sodium Chloride Flush 0.9% 10 Ml Syringe IVP Not Given 0100,0900,1700 MARCIA Sodium Phosphate 250 mg 11/28/24 09:00 11/28/24 08:54 Neutra-Phos 250 Mg Tablet PO 11/28/24 21:01 250 mg BID MARCIA Administration Sterile Water 20 ml 11/28/24 09:00 11/28/24 08:55 Water For Injection,Sterile 10 Ml Vial MC 20 ml DAILY MARCIA Administration Objective Vital Signs/Intake & Output Reviewed Vital Signs: Yes Vital Signs: Vital Signs x48h Temp Pulse Pulse Resp BP Pulse Ox 11/28/24 07:34 37.1 C 102 H 22 157/94 H 98 11/28/24 03:00 37.1 C 102 H 16 161/91 H 96 Intake & Output: Intake & Output 11/25/24 11/26/24 11/27/24 11/28/24 23:59 23:59 23:59 23:59 Intake Total 7807 / 7807 2854 / 2854 Output Total 2100 / 2100 Balance 5707 / 5707 2854 / 2854 Weight (kg) 107 kg 108.5 kg Objective Comments/Other: middle aged woman lying in bed, NAD, sclera anicteric, MMM, no thyromegaly LCTAB, nonlabored cardiac: RRR, S1S2, no edema abd soft, obese, tender to deep palpation LLQ, no guarding, BS+, no mass, no CVA tenderness AAOx3, normal tone, no tremor Lab Results 11/28/24 05:23 11/28/24 05:23 Other Labs: Lab Results x24hrs 11/28/24 11/28/24 11/28/24 Range/Units 06:51 05:23 03:02 WBC 20.6 H (4.8-10.8) x10^3/uL RBC 3.16 L (4.20-5.40) 10^6/uL Hgb 8.5 L (12.0-16.0) g/dL Hct 25.9 L (37.0-47.0) % MCV 82.0 (81.0-99.0) fL MCH 26.9 L (27.0-31.0) pg MCHC 32.8 (32.0-36.0) g/dL RDW 12.5 (12.0-15.0) % Plt Count 210 (130-450) 10^3/uL MPV 10.7 (7.9-10.8) fL Neut # (Auto) Not Reportable Lymph # (Auto) Not Reportable Anderson # (Auto) Not Reportable Eos # (Auto) Not Reportable Baso # (Auto) Not Reportable Absolute Nucleated RBC Not Reportable Total Counted 100 Band Neuts % (Manual) 2 (0 - 10) % Abnorm Lymph % (Manual) 0 % Nucleated RBC % Not Reportable Neutrophils # (Manual) 17.7 H (1.5-6.6) 10^3/uL Lymphocytes # (Manual) 1.6 (1.5-3.5) 10^3/uL Monocytes # (Manual) 1.2 H (0.0-1.0) 10^3/uL Eosinophils # (Manual) 0.0 (0-0.7) 10^3/uL Basophils # (Manual) 0.0 (0-0.1) 10^3/uL Differential Comment MANUAL DIFFERENTIAL WBC Morphology NORMAL APPEARANCE (NORMAL) Platelet Estimate NORMAL (130-450,000) (NORMAL) Platelet Morphology NORMAL APPEARANCE (NORMAL) RBC Morph Micro Appear NORMAL APPEARANCE (NORMAL) VBG pH (7.31-7.41) VBG pCO2 (41-51) mmHg VBG pO2 (25-47) mmHg VBG HCO3 (23-28) mmol/L VBG Total CO2 (24-29) mmol/L VBG O2 Saturation (60-80) % VBG Base Excess (-2 - +2) mmol/L Ionized Calcium (1.09-1.30) mmol/L Sodium 130 L (135-145) mmol/L Potassium 3.5 (3.5-4.5) mmol/L Chloride 100 L (101-111) mmol/L Carbon Dioxide 18 L (21-32) mmol/L Anion Gap 12.0 (6-13) BUN 18 (6-20) mg/dL Creatinine 0.7 (0.6-1.3) mg/dL Estimated GFR (MDRD) 92 (>89) Glucose 261 H (74-104) mg/dL POC Whole Bld Glucose 255 262 (70-100) mg/dL Lactic Acid (0.5-2.2) mmol/L Calcium 7.5 L (8.5-10.3) mg/dL Phosphorus 1.4 L (2.5-5.0) mg/dL Magnesium (1.7-2.3) mg/dL Total Bilirubin 0.4 (0.2-1.0) mg/dL AST 7 L (10-42) IU/L ALT 6 L (10-60) IU/L Alkaline Phosphatase 94 (42-121) IU/L Total Protein 6.0 L (6.4-8.9) g/dL Albumin 2.8 L (3.2-5.5) g/dL Globulin 3.2 (2.1-4.2) g/dL Albumin/Globulin Ratio 0.9 L (1.0-2.2) Urine Color Urine Clarity (CLEAR) Urine pH (5.0-7.5) PH Ur Specific [place] (1.002-1.030) Urine Protein (NEGATIVE) mg/dL Urine Glucose (UA) (NEGATIVE) mg/dL Urine Ketones (NEGATIVE) mg/dL Urine Occult Blood (NEGATIVE) Urine Nitrite (NEGATIVE) Urine Bilirubin (NEGATIVE) Urine Urobilinogen (NORMAL) E.U./dL Ur Leukocyte Esterase (NEGATIVE) Urine RBC (0-5) /HPF Urine WBC (0-5) /HPF Ur Squamous Epith Cells (<= Few) Urine Bacteria (None Seen) /HPF Urine Trichomonas (None Seen) Ur Microscopic Review Urine Culture Comments Nasal Screen MRSA (PCR) (NEGATIVE) Gastric Occult Blood (Negative) Serum Ketones (NEGATIVE) Blood Type Blood Type Recheck Antibody Screen 11/28/24 11/27/24 11/27/24 Range/Units 01:05 22:35 22:34 WBC (4.8-10.8) x10^3/uL RBC (4.20-5.40) 10^6/uL Hgb (12.0-16.0) g/dL Hct (37.0-47.0) % MCV (81.0-99.0) fL MCH (27.0-31.0) pg MCHC (32.0-36.0) g/dL RDW (12.0-15.0) % Plt Count (130-450) 10^3/uL MPV (7.9-10.8) fL Neut # (Auto) Lymph # (Auto) Anderson # (Auto) Eos # (Auto) Baso # (Auto) Absolute Nucleated RBC Total Counted Band Neuts % (Manual) (0 - 10) % Abnorm Lymph % (Manual) % Nucleated RBC % Neutrophils # (Manual) (1.5-6.6) 10^3/uL Lymphocytes # (Manual) (1.5-3.5) 10^3/uL Monocytes # (Manual) (0.0-1.0) 10^3/uL Eosinophils # (Manual) (0-0.7) 10^3/uL Basophils # (Manual) (0-0.1) 10^3/uL Differential Comment WBC Morphology (NORMAL) Platelet Estimate (NORMAL) Platelet Morphology (NORMAL) RBC Morph Micro Appear (NORMAL) VBG pH 7.477 H (7.31-7.41) VBG pCO2 (41-51) mmHg VBG pO2 (25-47) mmHg VBG HCO3 (23-28) mmol/L VBG Total CO2 (24-29) mmol/L VBG O2 Saturation (60-80) % VBG Base Excess (-2 - +2) mmol/L Ionized Calcium 1.07 L (1.09-1.30) mmol/L Sodium (135-145) mmol/L Potassium 3.8 (3.5-4.5) mmol/L Chloride (101-111) mmol/L Carbon Dioxide (21-32) mmol/L Anion Gap (6-13) BUN (6-20) mg/dL Creatinine (0.6-1.3) mg/dL Estimated GFR (MDRD) (>89) Glucose (74-104) mg/dL POC Whole Bld Glucose 231 (70-100) mg/dL Lactic Acid (0.5-2.2) mmol/L Calcium (8.5-10.3) mg/dL Phosphorus 1.4 L (2.5-5.0) mg/dL Magnesium (1.7-2.3) mg/dL Total Bilirubin (0.2-1.0) mg/dL AST (10-42) IU/L ALT (10-60) IU/L Alkaline Phosphatase (42-121) IU/L Total Protein (6.4-8.9) g/dL Albumin (3.2-5.5) g/dL Globulin (2.1-4.2) g/dL Albumin/Globulin Ratio (1.0-2.2) Urine Color Urine Clarity (CLEAR) Urine pH (5.0-7.5) PH Ur Specific [place] (1.002-1.030) Urine Protein (NEGATIVE) mg/dL Urine Glucose (UA) (NEGATIVE) mg/dL Urine Ketones (NEGATIVE) mg/dL Urine Occult Blood (NEGATIVE) Urine Nitrite (NEGATIVE) Urine Bilirubin (NEGATIVE) Urine Urobilinogen (NORMAL) E.U./dL Ur Leukocyte Esterase (NEGATIVE) Urine RBC (0-5) /HPF Urine WBC (0-5) /HPF Ur Squamous Epith Cells (<= Few) Urine Bacteria (None Seen) /HPF Urine Trichomonas (None Seen) Ur Microscopic Review Urine Culture Comments Nasal Screen MRSA (PCR) (NEGATIVE) Gastric Occult Blood (Negative) Serum Ketones (NEGATIVE) Blood Type Blood Type Recheck Antibody Screen 11/27/24 11/27/24 11/27/24 Range/Units 20:40 19:00 17:58 WBC (4.8-10.8) x10^3/uL RBC (4.20-5.40) 10^6/uL Hgb 9.0 L (12.0-16.0) g/dL Hct 26.9 L (37.0-47.0) % MCV (81.0-99.0) fL MCH (27.0-31.0) pg MCHC (32.0-36.0) g/dL RDW (12.0-15.0) % Plt Count (130-450) 10^3/uL MPV (7.9-10.8) fL Neut # (Auto) Lymph # (Auto) Anderson # (Auto) Eos # (Auto) Baso # (Auto) Absolute Nucleated RBC Total Counted Band Neuts % (Manual) (0 - 10) % Abnorm Lymph % (Manual) % Nucleated RBC % Neutrophils # (Manual) (1.5-6.6) 10^3/uL Lymphocytes # (Manual) (1.5-3.5) 10^3/uL Monocytes # (Manual) (0.0-1.0) 10^3/uL Eosinophils # (Manual) (0-0.7) 10^3/uL Basophils # (Manual) (0-0.1) 10^3/uL Differential Comment WBC Morphology (NORMAL) Platelet Estimate (NORMAL) Platelet Morphology (NORMAL) RBC Morph Micro Appear (NORMAL) VBG pH 7.493 H 7.484 H (7.31-7.41) VBG pCO2 26.3 L (41-51) mmHg VBG pO2 68.6 H (25-47) mmHg VBG HCO3 20.0 L (23-28) mmol/L VBG Total CO2 20.8 L (24-29) mmol/L VBG O2 Saturation 94.0 H (60-80) % VBG Base Excess -3.7 L (-2 - +2) mmol/L Ionized Calcium 1.05 L (1.09-1.30) mmol/L Sodium 129 L (135-145) mmol/L Potassium 3.5 (3.5-4.5) mmol/L Chloride 98 L (101-111) mmol/L Carbon Dioxide 21 (21-32) mmol/L Anion Gap 10.0 (6-13) BUN 25 H (6-20) mg/dL Creatinine 0.8 (0.6-1.3) mg/dL Estimated GFR (MDRD) 79 L (>89) Glucose 288 H (74-104) mg/dL POC Whole Bld Glucose 249 (70-100) mg/dL Lactic Acid (0.5-2.2) mmol/L Calcium 7.9 L (8.5-10.3) mg/dL Phosphorus 1.0 L* (2.5-5.0) mg/dL Magnesium 1.8 (1.7-2.3) mg/dL Total Bilirubin (0.2-1.0) mg/dL AST (10-42) IU/L ALT (10-60) IU/L Alkaline Phosphatase (42-121) IU/L Total Protein (6.4-8.9) g/dL Albumin (3.2-5.5) g/dL Globulin (2.1-4.2) g/dL Albumin/Globulin Ratio (1.0-2.2) Urine Color Urine Clarity (CLEAR) Urine pH (5.0-7.5) PH Ur Specific [place] (1.002-1.030) Urine Protein (NEGATIVE) mg/dL Urine Glucose (UA) (NEGATIVE) mg/dL Urine Ketones (NEGATIVE) mg/dL Urine Occult Blood (NEGATIVE) Urine Nitrite (NEGATIVE) Urine Bilirubin (NEGATIVE) Urine Urobilinogen (NORMAL) E.U./dL Ur Leukocyte Esterase (NEGATIVE) Urine RBC (0-5) /HPF Urine WBC (0-5) /HPF Ur Squamous Epith Cells (<= Few) Urine Bacteria (None Seen) /HPF Urine Trichomonas (None Seen) Ur Microscopic Review Urine Culture Comments Nasal Screen MRSA (PCR) (NEGATIVE) Gastric Occult Blood (Negative) Serum Ketones (NEGATIVE) Blood Type O POSITIVE Blood Type Recheck Antibody Screen NEGATIVE 11/27/24 11/27/24 11/27/24 Range/Units 17:57 17:01 16:05 WBC (4.8-10.8) x10^3/uL RBC (4.20-5.40) 10^6/uL Hgb (12.0-16.0) g/dL Hct (37.0-47.0) % MCV (81.0-99.0) fL MCH (27.0-31.0) pg MCHC (32.0-36.0) g/dL RDW (12.0-15.0) % Plt Count (130-450) 10^3/uL MPV (7.9-10.8) fL Neut # (Auto) Lymph # (Auto) Anderson # (Auto) Eos # (Auto) Baso # (Auto) Absolute Nucleated RBC Total Counted Band Neuts % (Manual) (0 - 10) % Abnorm Lymph % (Manual) % Nucleated RBC % Neutrophils # (Manual) (1.5-6.6) 10^3/uL Lymphocytes # (Manual) (1.5-3.5) 10^3/uL Monocytes # (Manual) (0.0-1.0) 10^3/uL Eosinophils # (Manual) (0-0.7) 10^3/uL Basophils # (Manual) (0-0.1) 10^3/uL Differential Comment WBC Morphology (NORMAL) Platelet Estimate (NORMAL) Platelet Morphology (NORMAL) RBC Morph Micro Appear (NORMAL) VBG pH 7.424 H (7.31-7.41) VBG pCO2 29.0 L (41-51) mmHg VBG pO2 59.8 H (25-47) mmHg VBG HCO3 19.0 L (23-28) mmol/L VBG Total CO2 20.1 L (24-29) mmol/L VBG O2 Saturation 89.0 H (60-80) % VBG Base Excess -5.4 L (-2 - +2) mmol/L Ionized Calcium (1.09-1.30) mmol/L Sodium 126 L (135-145) mmol/L Potassium 3.4 L (3.5-4.5) mmol/L Chloride 96 L (101-111) mmol/L Carbon Dioxide 21 (21-32) mmol/L Anion Gap 9.0 (6-13) BUN 28 H (6-20) mg/dL Creatinine 1.0 (0.6-1.3) mg/dL Estimated GFR (MDRD) 61 L (>89) Glucose 361 H (74-104) mg/dL POC Whole Bld Glucose 283 309 (70-100) mg/dL Lactic Acid (0.5-2.2) mmol/L Calcium 7.7 L (8.5-10.3) mg/dL Phosphorus 1.5 L (2.5-5.0) mg/dL Magnesium 1.8 (1.7-2.3) mg/dL Total Bilirubin (0.2-1.0) mg/dL AST (10-42) IU/L ALT (10-60) IU/L Alkaline Phosphatase (42-121) IU/L Total Protein (6.4-8.9) g/dL Albumin (3.2-5.5) g/dL Globulin (2.1-4.2) g/dL Albumin/Globulin Ratio (1.0-2.2) Urine Color Urine Clarity (CLEAR) Urine pH (5.0-7.5) PH Ur Specific [place] (1.002-1.030) Urine Protein (NEGATIVE) mg/dL Urine Glucose (UA) (NEGATIVE) mg/dL Urine Ketones (NEGATIVE) mg/dL Urine Occult Blood (NEGATIVE) Urine Nitrite (NEGATIVE) Urine Bilirubin (NEGATIVE) Urine Urobilinogen (NORMAL) E.U./dL Ur Leukocyte Esterase (NEGATIVE) Urine RBC (0-5) /HPF Urine WBC (0-5) /HPF Ur Squamous Epith Cells (<= Few) Urine Bacteria (None Seen) /HPF Urine Trichomonas (None Seen) Ur Microscopic Review Urine Culture Comments Nasal Screen MRSA (PCR) (NEGATIVE) Gastric Occult Blood (Negative) Serum Ketones (NEGATIVE) Blood Type Blood Type Recheck Antibody Screen 11/27/24 11/27/24 11/27/24 Range/Units 16:03 15:03 14:02 WBC (4.8-10.8) x10^3/uL RBC (4.20-5.40) 10^6/uL Hgb (12.0-16.0) g/dL Hct (37.0-47.0) % MCV (81.0-99.0) fL MCH (27.0-31.0) pg MCHC (32.0-36.0) g/dL RDW (12.0-15.0) % Plt Count (130-450) 10^3/uL MPV (7.9-10.8) fL Neut # (Auto) Lymph # (Auto) Anderson # (Auto) Eos # (Auto) Baso # (Auto) Absolute Nucleated RBC Total Counted Band Neuts % (Manual) (0 - 10) % Abnorm Lymph % (Manual) % Nucleated RBC % Neutrophils # (Manual) (1.5-6.6) 10^3/uL Lymphocytes # (Manual) (1.5-3.5) 10^3/uL Monocytes # (Manual) (0.0-1.0) 10^3/uL Eosinophils # (Manual) (0-0.7) 10^3/uL Basophils # (Manual) (0-0.1) 10^3/uL Differential Comment WBC Morphology (NORMAL) Platelet Estimate (NORMAL) Platelet Morphology (NORMAL) RBC Morph Micro Appear (NORMAL) VBG pH (7.31-7.41) VBG pCO2 (41-51) mmHg VBG pO2 (25-47) mmHg VBG HCO3 (23-28) mmol/L VBG Total CO2 (24-29) mmol/L VBG O2 Saturation (60-80) % VBG Base Excess (-2 - +2) mmol/L Ionized Calcium (1.09-1.30) mmol/L Sodium (135-145) mmol/L Potassium (3.5-4.5) mmol/L Chloride (101-111) mmol/L Carbon Dioxide (21-32) mmol/L Anion Gap (6-13) BUN (6-20) mg/dL Creatinine (0.6-1.3) mg/dL Estimated GFR (MDRD) (>89) Glucose (74-104) mg/dL POC Whole Bld Glucose 303 436 442 (70-100) mg/dL Lactic Acid (0.5-2.2) mmol/L Calcium (8.5-10.3) mg/dL Phosphorus (2.5-5.0) mg/dL Magnesium (1.7-2.3) mg/dL Total Bilirubin (0.2-1.0) mg/dL AST (10-42) IU/L ALT (10-60) IU/L Alkaline Phosphatase (42-121) IU/L Total Protein (6.4-8.9) g/dL Albumin (3.2-5.5) g/dL Globulin (2.1-4.2) g/dL Albumin/Globulin Ratio (1.0-2.2) Urine Color Urine Clarity (CLEAR) Urine pH (5.0-7.5) PH Ur Specific [place] (1.002-1.030) Urine Protein (NEGATIVE) mg/dL Urine Glucose (UA) (NEGATIVE) mg/dL Urine Ketones (NEGATIVE) mg/dL Urine Occult Blood (NEGATIVE) Urine Nitrite (NEGATIVE) Urine Bilirubin (NEGATIVE) Urine Urobilinogen (NORMAL) E.U./dL Ur Leukocyte Esterase (NEGATIVE) Urine RBC (0-5) /HPF Urine WBC (0-5) /HPF Ur Squamous Epith Cells (<= Few) Urine Bacteria (None Seen) /HPF Urine Trichomonas (None Seen) Ur Microscopic Review Urine Culture Comments Nasal Screen MRSA (PCR) (NEGATIVE) Gastric Occult Blood (Negative) Serum Ketones (NEGATIVE) Blood Type Blood Type Recheck Antibody Screen 11/27/24 11/27/24 11/27/24 Range/Units 13:58 12:58 12:24 WBC (4.8-10.8) x10^3/uL RBC (4.20-5.40) 10^6/uL Hgb (12.0-16.0) g/dL Hct (37.0-47.0) % MCV (81.0-99.0) fL MCH (27.0-31.0) pg MCHC (32.0-36.0) g/dL RDW (12.0-15.0) % Plt Count (130-450) 10^3/uL MPV (7.9-10.8) fL Neut # (Auto) Lymph # (Auto) [place] # (Auto) Eos # (Auto) Baso # (Auto) Absolute Nucleated RBC Total Counted Band Neuts % (Manual) (0 - 10) % Abnorm Lymph % (Manual) % Nucleated RBC % Neutrophils # (Manual) (1.5-6.6) 10^3/uL Lymphocytes # (Manual) (1.5-3.5) 10^3/uL Monocytes # (Manual) (0.0-1.0) 10^3/uL Eosinophils # (Manual) (0-0.7) 10^3/uL Basophils # (Manual) (0-0.1) 10^3/uL Differential Comment WBC Morphology (NORMAL) Platelet Estimate (NORMAL) Platelet Morphology (NORMAL) RBC Morph Micro Appear (NORMAL) VBG pH 7.377 (7.31-7.41) VBG pCO2 28.8 L (41-51) mmHg VBG pO2 43.2 (25-47) mmHg VBG HCO3 17.1 L (23-28) mmol/L VBG Total CO2 17.9 L (24-29) mmol/L VBG O2 Saturation 69.0 (60-80) % VBG Base Excess -8.3 L (-2 - +2) mmol/L Ionized Calcium (1.09-1.30) mmol/L Sodium 126 L (135-145) mmol/L Potassium 3.6 (3.5-4.5) mmol/L Chloride 91 L (101-111) mmol/L Carbon Dioxide 20 L (21-32) mmol/L Anion Gap 15.0 H (6-13) BUN 31 H (6-20) mg/dL Creatinine 1.0 (0.6-1.3) mg/dL Estimated GFR (MDRD) 61 L (>89) Glucose 464 H (74-104) mg/dL POC Whole Bld Glucose 451 (70-100) mg/dL Lactic Acid (0.5-2.2) mmol/L Calcium 8.0 L (8.5-10.3) mg/dL Phosphorus (2.5-5.0) mg/dL Magnesium 1.9 (1.7-2.3) mg/dL Total Bilirubin (0.2-1.0) mg/dL AST (10-42) IU/L ALT (10-60) IU/L Alkaline Phosphatase (42-121) IU/L Total Protein (6.4-8.9) g/dL Albumin (3.2-5.5) g/dL Globulin (2.1-4.2) g/dL Albumin/Globulin Ratio (1.0-2.2) Urine Color Urine Clarity (CLEAR) Urine pH (5.0-7.5) PH Ur Specific [place] (1.002-1.030) Urine Protein (NEGATIVE) mg/dL Urine Glucose (UA) (NEGATIVE) mg/dL Urine Ketones (NEGATIVE) mg/dL Urine Occult Blood (NEGATIVE) Urine Nitrite (NEGATIVE) Urine Bilirubin (NEGATIVE) Urine Urobilinogen (NORMAL) E.U./dL Ur Leukocyte Esterase (NEGATIVE) Urine RBC (0-5) /HPF Urine WBC (0-5) /HPF Ur Squamous Epith Cells (<= Few) Urine Bacteria (None Seen) /HPF Urine Trichomonas (None Seen) Ur Microscopic Review Urine Culture Comments Nasal Screen MRSA (PCR) NEGATIVE (NEGATIVE) Gastric Occult Blood (Negative) Serum Ketones (NEGATIVE) Blood Type Blood Type Recheck Antibody Screen 11/27/24 11/27/24 11/27/24 Range/Units 12:06 11:08 10:56 WBC 24.4 H (4.8-10.8) x10^3/uL RBC 3.54 L (4.20-5.40) 10^6/uL Hgb 9.8 L (12.0-16.0) g/dL Hct 28.8 L (37.0-47.0) % MCV 81.4 (81.0-99.0) fL MCH 27.7 (27.0-31.0) pg MCHC 34.0 (32.0-36.0) g/dL RDW 12.2 (12.0-15.0) % Plt Count 214 (130-450) 10^3/uL MPV 10.9 H (7.9-10.8) fL Neut # (Auto) 21.1 H Lymph # (Auto) 0.9 L [place] # (Auto) 2.1 H Eos # (Auto) 0.0 Baso # (Auto) 0.0 Absolute Nucleated RBC 0.00 Total Counted Band Neuts % (Manual) (0 - 10) % Abnorm Lymph % (Manual) % Nucleated RBC % 0.0 Neutrophils # (Manual) (1.5-6.6) 10^3/uL Lymphocytes # (Manual) (1.5-3.5) 10^3/uL Monocytes # (Manual) (0.0-1.0) 10^3/uL Eosinophils # (Manual) (0-0.7) 10^3/uL Basophils # (Manual) (0-0.1) 10^3/uL Differential Comment WBC Morphology (NORMAL) Platelet Estimate (NORMAL) Platelet Morphology (NORMAL) RBC Morph Micro Appear (NORMAL) VBG pH (7.31-7.41) VBG pCO2 (41-51) mmHg VBG pO2 (25-47) mmHg VBG HCO3 (23-28) mmol/L VBG Total CO2 (24-29) mmol/L VBG O2 Saturation (60-80) % VBG Base Excess (-2 - +2) mmol/L Ionized Calcium (1.09-1.30) mmol/L Sodium 126 L 125 L (135-145) mmol/L Potassium 3.6 3.5 (3.5-4.5) mmol/L Chloride 90 L 87 L (101-111) mmol/L Carbon Dioxide 21 17 L (21-32) mmol/L Anion Gap 15.0 H 21.0 H (6-13) BUN 33 H 35 H (6-20) mg/dL Creatinine 1.2 1.3 (0.6-1.3) mg/dL Estimated GFR (MDRD) 49 L 45 L (>89) Glucose 543 H* 647 H* (74-104) mg/dL POC Whole Bld Glucose (70-100) mg/dL Lactic Acid (0.5-2.2) mmol/L Calcium 7.9 L 8.0 L (8.5-10.3) mg/dL Phosphorus (2.5-5.0) mg/dL Magnesium (1.7-2.3) mg/dL Total Bilirubin 0.3 (0.2-1.0) mg/dL AST 9 L (10-42) IU/L ALT 7 L (10-60) IU/L Alkaline Phosphatase 108 (42-121) IU/L Total Protein 6.6 (6.4-8.9) g/dL Albumin 3.1 L (3.2-5.5) g/dL Globulin 3.5 (2.1-4.2) g/dL Albumin/Globulin Ratio 0.9 L (1.0-2.2) Urine Color YELLOW Urine Clarity CLEAR (CLEAR) Urine pH 6.0 (5.0-7.5) PH Ur Specific [place] 1.020 (1.002-1.030) Urine Protein TRACE (NEGATIVE) mg/dL Urine Glucose (UA) >=1000 H (NEGATIVE) mg/dL Urine Ketones >=80 H (NEGATIVE) mg/dL Urine Occult Blood LARGE H (NEGATIVE) Urine Nitrite NEGATIVE (NEGATIVE) Urine Bilirubin NEGATIVE (NEGATIVE) Urine Urobilinogen 0.2 (NORMAL) (NORMAL) E.U./dL Ur Leukocyte Esterase NEGATIVE (NEGATIVE) Urine RBC 0-5 (0-5) /HPF Urine WBC 0-3 (0-5) /HPF Ur Squamous Epith Cells FEW Squamous (<= Few) Urine Bacteria Few (None Seen) /HPF Urine Trichomonas PRESENT H (None Seen) Ur Microscopic Review INDICATED Urine Culture Comments NOT INDICATED Nasal Screen MRSA (PCR) (NEGATIVE) Gastric Occult Blood (Negative) Serum Ketones (NEGATIVE) Blood Type Blood Type Recheck O POSITIVE Antibody Screen 11/27/24 11/27/24 11/27/24 Range/Units 10:53 10:45 08:49 WBC (4.8-10.8) x10^3/uL RBC (4.20-5.40) 10^6/uL Hgb (12.0-16.0) g/dL Hct (37.0-47.0) % MCV (81.0-99.0) fL MCH (27.0-31.0) pg MCHC (32.0-36.0) g/dL RDW (12.0-15.0) % Plt Count (130-450) 10^3/uL MPV (7.9-10.8) fL Neut # (Auto) Not Reportable Lymph # (Auto) Not Reportable [place] # (Auto) Not Reportable Eos # (Auto) Not Reportable Baso # (Auto) Not Reportable Absolute Nucleated RBC Not Reportable Total Counted 100 Band Neuts % (Manual) 16 H (0 - 10) % Abnorm Lymph % (Manual) 0 % Nucleated RBC % Not Reportable Neutrophils # (Manual) 26.4 H (1.5-6.6) 10^3/uL Lymphocytes # (Manual) 1.8 (1.5-3.5) 10^3/uL Monocytes # (Manual) 1.2 H (0.0-1.0) 10^3/uL Eosinophils # (Manual) 0.0 (0-0.7) 10^3/uL Basophils # (Manual) 0.0 (0-0.1) 10^3/uL Differential Comment MANUAL DIFFERENTIAL WBC Morphology NORMAL APPEARANCE (NORMAL) Platelet Estimate NORMAL (130-450,000) (NORMAL) Platelet Morphology NORMAL APPEARANCE (NORMAL) RBC Morph Micro Appear NORMAL APPEARANCE (NORMAL) VBG pH (7.31-7.41) VBG pCO2 (41-51) mmHg VBG pO2 (25-47) mmHg VBG HCO3 (23-28) mmol/L VBG Total CO2 (24-29) mmol/L VBG O2 Saturation (60-80) % VBG Base Excess (-2 - +2) mmol/L Ionized Calcium (1.09-1.30) mmol/L Sodium (135-145) mmol/L Potassium (3.5-4.5) mmol/L Chloride (101-111) mmol/L Carbon Dioxide (21-32) mmol/L Anion Gap (6-13) BUN (6-20) mg/dL Creatinine (0.6-1.3) mg/dL Estimated GFR (MDRD) (>89) Glucose 867 H* (74-104) mg/dL POC Whole Bld Glucose > 600 (70-100) mg/dL Lactic Acid 1.8 (0.5-2.2) mmol/L Calcium (8.5-10.3) mg/dL Phosphorus (2.5-5.0) mg/dL Magnesium (1.7-2.3) mg/dL Total Bilirubin (0.2-1.0) mg/dL AST (10-42) IU/L ALT (10-60) IU/L Alkaline Phosphatase (42-121) IU/L Total Protein (6.4-8.9) g/dL Albumin (3.2-5.5) g/dL Globulin (2.1-4.2) g/dL Albumin/Globulin Ratio (1.0-2.2) Urine Color Urine Clarity (CLEAR) Urine pH (5.0-7.5) PH Ur Specific [place] (1.002-1.030) Urine Protein (NEGATIVE) mg/dL Urine Glucose (UA) (NEGATIVE) mg/dL Urine Ketones (NEGATIVE) mg/dL Urine Occult Blood (NEGATIVE) Urine Nitrite (NEGATIVE) Urine Bilirubin (NEGATIVE) Urine Urobilinogen (NORMAL) E.U./dL Ur Leukocyte Esterase (NEGATIVE) Urine RBC (0-5) /HPF Urine WBC (0-5) /HPF Ur Squamous Epith Cells (<= Few) Urine Bacteria (None Seen) /HPF Urine Trichomonas (None Seen) Ur Microscopic Review Urine Culture Comments Nasal Screen MRSA (PCR) (NEGATIVE) Gastric Occult Blood POSITIVE A (Negative) Serum Ketones MODERATE H (NEGATIVE) Blood Type Blood Type Recheck Antibody Screen Other Results/Comments Other Results/Comments: blood cx, 11/27/24: GNR 2/4 bottles, PCR E. coli Assessment/Plan Problem List (1) Renal abscess, left: Impression: 44 yo F with h/o DM2, neuropathy, HTN, GERD, hemorrhoids presenting with nausea and vomiting for a few days,polydypsia and polyuria, fever, and LLQ abd pain. Found to be in DKA with initial glu 800s. 1. DM2, uncontrolled. DKA resolved: Pt has been off insulin for some years. Acute trigger possibly kidney abscess vs bleed or due to chronically untreated DM. Transitioned to basal/bolus regimen last night. Sugars improving. - increase lantus to 20 units q day - lispro 6 TID with meals - SSI - f/u A1c 2. L intrarenal abscess, r/o capsular rupture with hematoma, E. coli bacteremia: hemodynamically stable. Afebrile here but reported fever to 101 at home. No reports of trauma to suggest renal injury or laceration. wbc trending down. Blood cx growing E. coli. - appreciate urology input- discussed case with Dr. León- Plan abx, cultures, repeat CT in 24-48 hrs. - d/c pip-tazo and vancomycin. Switch to CTX. - f/u susceptibilties - if signs of worsening sepsis, broaden to carbapenem and consider transfer for IR drainage vs surgical intervention - serial abx exams 3. vomiting, hematemesis, acute blood loss anemia: gastroccult positive emesis in ED. No vomiting since arrival to floor. Last hgb in our system is from 2021 and was 14.7 at that time. Now hgb 10.8-> 9.8-> 8.5. Significant dilutional component after 4 L NS. No menlena so doubt fast or large bleed. Suspect gastritis, consider PUD vs AVM. No further hematemesis. - ppi iv BID - H/H q 12 hrs, transfuse if < 7 - if further drop in H/H or signs of fast bleed, GI consult and transfer to larger facility 4. HTN: off meds. - monitor 5. trichomoniasis: Pt endorsed vaginal discharge and irritation. - flagyl 500 BID x 7 days. - offer partner treatment 6. hyponatremia: Corrected Na ~ 133. Likely hyponvolemic. Initial Na ~ 130 when corrected for hyperglycemia. - continue NS 100 ml/hr dvt ppx: SCDs given hematemesis. Dispo: Lives at home with who is HCP: Juan Pulu. Pending glucose control and treatment of renal abscess, likely 2-3 days.
[2024-11-28] MEDS: INSULIN GLARGINE-YFGN 300 UNIT/3 ML PEN SUBQ SCH (11:13)
[2024-11-28 11:32] LABS: ESTIMATED AVERAGE GLUCOSE 361 mg/dL (70-100); HEMOGLOBIN A1c% 14.2 % (4.27-6.07)
--- NOTE | 2024-11-28 11:50 | PROVIDER PROGRESS NOTE ---
Subjective General Admit Date: 11/27/24 Other Other Information/Narrative: No acute change overnight. Leukocytosis improving to 20. Afebrile. Blood Cx with EColi bacteremia. Exam Exam Vital Signs: Vital Signs x48h Temp Pulse Resp BP Pulse Ox 11/28/24 07:34 37.1 C 102 H 22 157/94 H 98 NAD Obese left flank TTP ABX Reporting Has patient been on IV antibiotics over the past 48 hours?: No Impression/Plan Problem List (1) Renal abscess, left: Plan: Unfortunately with her bacteremia I am worried that the conservative management we initially have trialed for this patient will ultimately fail. She is afebrile and hemodynamically stable and appears quite well and so I think that she should be urgently but not emergently transferred to a higher level of care for interventional radiology drain placement of her subcapsular left renal likely abscess. She is to remain on antibiotics for now. Continue DKA/DM management I discussed this with the hospitalist team
[2024-11-28 18:03] LABS: HCT - HEMATOCRIT 25.6 % (37.0-47.0); HGB - HEMOGLOBIN 8.5 g/dL (12.0-16.0)
--- NOTE | 2024-11-28 18:29 | Discharge Summary ---
"Discharge Summary Admit Date: 11/27/24 Discharge Date: 11/28/24 Discharging Provider: Preston Abbott MD Code Status: Attempt Resuscitation DIAGNOSES Admission Diagnoses: DM2 with DKA Left intrarenal abscess, r/o capsular rupture with hematoma, sepsis due to abscess vomiting, hematemesis, acute blood loss anemia HTN trichomoniasis Discharge Diagnoses with Status of Each Condition: DM2 DKA resolved Left intrarenal abscess, r/o capsular rupture with hematoma, E. coli bacteremia vomiting, hematemesis, acute blood loss anemia HTN trichomoniasis HPI History of Present Illness: 44 yo F with h/o DM2, neuropathy, HTN, GERD, hemorrhoids presenting with nausea and vomiting for a few days. She reports polydypsia and polyuria. Fever to 101 at home. No diarrhea. No dysuria, no cough. She complains of pain in LLQ/ L flank that is worse when she leans forward better lying on back. No blood in urine or stool, no melena. In the ED she vomited coffee ground material that was gastroccult positive. She does state she has been taking some ibuprofen this week but unable to quantify exactly how much. She was previously treated with insulin but has been off this med for approx 5 years and has not follow up with a PMD during this period. Also off all other meds. Denies any h/o kidney problems. Regular menses, had period last week. In the ED, pt was found to have DKA, glu 860s. She was given 4 L NS and started on insulin drip. CONSULTS | PROCEDURES Consultations: Urology HOSPITAL COURSE Hospital Course: 1. DM2 with DKA: initial Glu 860s, bicarb 14, anion gap 27. Urine and serum ketones positive. Pt has been off home insulin for some years. Acute trigger possibly kidney abscess vs bleed or due to chronically untreated DM. She was started on an insulin drip and given aggressive iv fluid resuscitation. Anion gap closed after approx 5-6 hours on drip and pt was transitioned to a basal- bolus insulin regimen. She is tolerating po intake without problems. Glu in 260s this afternoon. Received lantus 20 this am, lispor 6 TID with meals, and sliding scale lispro. A1c 14.2. 2. L intrarenal abscess, r/o capsular rupture with hematoma, sepsis on admission, E. coli bacteremia: Pt presented with LLQ abdominal pain, worse sitting up, better lying flat, mild tenderness to deep palpation on exam, no dyruria, no CVA tenderness. CT as listed below revealed 13.9 cm L renal abscess. Pt remained hemodynamically stable. Tachycardic initially that has improved, HR 100-105 today. Afebrile here but reported fever to 101 at home. No reports of trauma to suggest renal injury or laceration. wbc initially 29, trended down to 20 on day of discharge. Blood cx from 11/27/24 growing GNR in 2/4 bottles, PCR on blood cx identified E. coli. The pt was initially given pip-tazo, then transitioned to Ceftriaxone. Urology Dr. León was consulted and provided management recommendations for this case. UCx growing 10-50,000 E. coli and 10- 50,000 beta hemolytic strep group B. I discussed the case with Dr. Davila from IR at [facility] who agree IR intervention for sample and likely drain of abscess would be feasible. I discussed the case with hospitalist Dr. Kennedy who has accepted the pt to the medicine service. 3. vomiting, hematemesis, acute blood loss anemia: gastroccult positive emesis in ED. No vomiting since arrival to floor. Last hgb in our system is from 2021 and was 14.7 at that time. Now hgb 10.8-> 9.8-> 8.5-> stable at 8.5 on afternoon of discharge, 11/28/24. Significant dilutional component after 4 L NS. No menlena so doubt fast or large bleed. Suspect gastritis, consider PUD vs AVM. Treted with iv ppi. Would follow H/H and transfuse if < 7, consult GI if anemia worsens. 4. HTN: off med outpt. Started lisinopril 10 mg q day. 5. trichomoniasis: Seen on UA. Pt endorsed vaginal discharge and irritation. flagyl 500 BID x 7 days. Offer partner treatment. 6. hyponatremia: Likely hyponvolemic. Initial Na ~ 130 when corrected for hyperglycemia. Na trending up, Corrected Na ~ 133 on day of discharge. continue NS 100 ml/hr. DVT ppx: SCDs given hematemesis and anemia. Updated pt and at bedside regarding transfer and the agree with plan. ALLERGIES Allergies Allergy/AdvReac Type Severity Reaction Status Date / Time No Known Drug Allergies Allergy Verified 11/27/24 07:01 MEDICATIONS Ambulatory Orders Medication Instructions Recorded Confirmed No Known Home Medications 11/27/24 0908/16 PHYSICAL EXAM AT DISCHARGE Vital Signs: Vital Signs x48h Temp Pulse Pulse Resp BP Pulse Ox 11/28/24 15:57 37.2 C 103 H 16 155/88 H 99 11/28/24 12:24 36.8 C 115 H 24 157/87 H 99 middle aged woman lying in bed, NAD, sclera anicteric, MMM, no thyromegaly LCTAB, nonlabored cardiac: RRR, S1S2, no edema abd soft, obese, tender to deep palpation LLQ, no guarding, BS+, no mass, no CVA tenderness AAOx3, normal tone, no tremor LABS 11/28/24 17:50 11/28/24 05:23 DIAGNOSTIC IMAGING Diagnostic Imaging Results Comments: CT a/p with contrast, 11/27/24: EXAM: [id number] CT/ABPEW ([id number]) PROCEDURE: CT Abdomen/Pelvis W INDICATIONS: vomiting fever wbc 30 CONTRAST: IV contrast 100ml omni 300 TECHNIQUE: After the administration of intravenous contrast, a CT scan of the abdomen and pelvis was performed. Images were recorded and evaluated at appropriate window settings. Reformats: coronal and sagittal. For radiation dose reduction, the following was used: automated exposure control, adjustment of mA and/or kV according to patient size. COMPARISON: None. FINDINGS: Image quality: Diagnostic Lower chest: Lung bases appear unremarkable. Mild nonspecific distal esophageal wall thickening possibly esophagitis. Liver: Unremarkable Gallbladder and biliary system: Unremarkable Pancreas: No ductal dilation Spleen: Nonenlarged Adrenals: No discrete nodules Kidneys: No hydronephrosis bilaterally. At the left kidney, there is a low density region measuring 5.1 x 4.7 cm with adjacent indistinctness of the cortex. Capsular hyperdense collection is seen measuring up to 13.9 x 8.5 cm. Edema and hemorrhage extends along the left retroperitoneum. Vessels and lymph nodes: The main portal vein appears patent. No abdominal aortic aneurysm. Mild aortoiliac atherosclerotic calcifications. Prominent retroperitoneal lymph nodes, not enlarged by size criteria, possibly reactive Bowel and peritoneum: No bowel obstruction. No drainable intraperitoneal abscess or ascites. Mild edema and fat stranding extends along the left mesenteric root to the left paracolic gutter. Body wall: Unremarkable Pelvis: Bladder shows mild wall thickening at the anterior aspect. Reproductive organs are unremarkable limited CT evaluation Bones: No aggressive appearing osseous finding. There are mild lumbosacral degenerative changes. IMPRESSION: 5.1 cm hypoattenuating left renal hypoattenuating region. Adjacent 13.9 cm hyperdense left renal capsular collection. Given concern for infection, this could represent an intrarenal abscess with capsular rupture and hematoma. Other considerations include underlying renal lesion with capsular rupture or a renal laceration. Edema and suspected hemorrhage extends along the left retroperitoneum and mesenteric root If there clinical concern for bleeding and trauma, multiphase CT could be used to assess for extravasation. No hydronephrosis. Mild bladder wall thickening, correlate urinalysis. Other findings above. Reviewed by: Rios Leon MD on 11/27/2024 11:49 AM PDT TIME SPENT Time Spent in Discharge (Minutes): 45 Discharge Plan Discharge Patient Disposition: 02 Transfer Acute Care Hosp Condition: Fair Prescriptions: No Action No Known Home Medications Activity Restrictions: Activity as Tolerated Diet: Diabetic Print Language: Norwegian Report called to and time (if no answer, doc. time of each call attempted): yes, 1700 Vitals documented within 30 minutes of discharge?: Yes"
[2024-11-28] MEDS: CALCIUM CARBONATE CHEW 500 MG TABLET PO PRN (20:21)
[2024-11-29 00:24] VITALS: O2SAT 97
[2024-11-29 01:54] VITALS: BP 152/85; TEMP 98.8
--- NOTE | 2024-12-28 09:34 | ED Physician Documentation ---
History of Present Illness Stated complaint Stated Complaint: N/V/FEVER Chief complaint Chief Complaint: Abd Pain History obtained from History obtained from: Patient Additonal information Additional information: The pt comes to the ED with CC of flu-like sx for the past several days. She states she has had a feeling of fever and chills, nausea, vomiting, shakes and runny nose. She's also had body aches. No dysuria. No cough. She has a distant dx of diabetes, but states she moved some years ago, and never got reestablished with primary care, so she has been off of her diabetes meds for several years. No other complaints at this time. Meds/Allgy Home Medications Ambulatory Orders Medication Instructions Recorded Confirmed blood sugar diagnostic (True 12/10/24 12/25/24 Metrix Glucose Test Strip) blood-glucose meter (True Metrix 12/10/24 12/25/24 Glucose Meter) lancets 30 gauge (TRUEplus Lancets) 12/10/24 12/25/24 losartan 100 mg tablet 100 mg PO QDAY 12/10/2406/16 pen needle, diabetic 29 gauge x 12/10/24 12/25/24/" insulin glargine 100 unit/mL (3 25 unit subcut QPM 06/1612/25/24 mL) subcutaneous pen (Basaglar KwikPen U-100 Insulin) insulin lispro 100 unit/mL 17 unit subcut TID 12/25/24 12/25/24 subcutaneous pen (Humalog KwikPen (U-100) Insulin) blood-glucose sensor (FreeStyle #1 ea 12/26/24 5 Teresa 3 Plus Sensor device) blood-glucose,mail handlers supervisor,cont #1 ea 12/26/24 12/26/24 (FreeStyle Teresa 3 [place]) Allergies Allergies Allergy/AdvReac Type Severity Reaction Status Date / Time No Known Drug Allergies Allergy Verified 11/27/24 07:01 [facility] Active Problems All Active Problems (Updated 12/28/24 @ 09:44 by Zoey Castellanos MD) Leukocytosis (Acute) Hyponatremia (Acute) Anemia (Chronic) Hematoma (Acute) History of sepsis (Acute) Renal abscess (Acute) Underinsured (Acute) Noncompliance (Acute) Foot joint pain (Acute) Obesity, unspecified (Chronic) Body mass index [BMI] 40.0-44.9, adult (Acute) Acute left otitis media (Acute) Low back pain, unspecified (Chronic) Hematuria, unspecified (Acute) Piriformis syndrome (Acute) Lesion of sciatic nerve, bilateral lower limbs (Acute) Pruritic rash (Acute) Tinea unguium (Acute) Flank pain (Acute) Renal colic (Acute) Nutritional assessment (Acute) Benign essential hypertension (Acute) Allergic rhinitis (Acute) Indigestion (Acute) Ankle arthritis (Acute) Pain in left elbow (Acute) Cervical disc disorder with radiculopathy (Acute) Pain in left shoulder (Acute) Medication refill (Acute) Preventative health care (Acute) Arthritis of left shoulder (Acute) Diabetes mellitus type II, uncontrolled (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) Folliculitis (Acute) Chest pain, unspecified (Acute) Family history of cardiovascular disease (Acute) Dyslipidemia (Acute) Encounter for testing for latent tuberculosis infection (Acute) Other specified disorders of right ear (Acute) Acute conjunctivitis (Acute) Lesion of skin of nose (Acute) Renal abscess, left (Acute) DKA (diabetic ketoacidosis) (Chronic) Medical History Medical History (Updated 12/28/24 @ 09:44 by Zoey Castellanos MD) Hx of essential hypertension Hx of diabetes mellitus Social History Social History Smoking Status: Former smoker If you are a former smoker, when did you quit? (Date/Year): Jan 2016 Number of Years Smoked: 24 Second hand tobacco smoke exposure: Yes Do you dip or chew tobacco?: No Do you vape?: No Patient requests smoking cessation consult: Yes Living arrangement: At home Marital Status: Living Condition: With spouse/s.o. Support Person: Yes Physical Activity: None Level: Independent Do you feel safe in your home environment?: Yes History of physical, verbal, emotional, or financial abuse?: No ETOH Use: None Substance Use: denies use POLST Patient has POLST: No Exam Constitutional no apparent distress PT is not in distress, but appears ill, and not to feel well. HENMT normocephalic, head/scalp atraumatic, external nose normal and oral mucous membranes normal Eyes EOMs intact bilaterally Neck/C-Spine visual inspection normal and supple Respiratory breath sounds equal bilaterally, normal respiratory effort and clear to auscultation bilaterally tachypnea Cardiovascular regular rhythm noted and no edema tachycardic Gastrointestinal abdomen normal to inspection, abdomen soft to palpation, nontender to palpation and nondistended Genitourinary no CVA tenderness Extremities normal to inspection Neurology Alert, grossly intact Psychiatry mental status grossly normal Skin skin color normal Results Vitals Vitals: Oxygen O2 Source Room air Labs Labs: Laboratory Tests 11/27/24 11/27/24 11/27/24 07:05 08:41 08:49 WBC 29.3 H RBC 3.98 L Hgb 10.8 L Hct 32.4 L MCV 81.4 MCH 27.1 MCHC 33.3 RDW 12.4 Plt Count 228 MPV 11.1 H Neut # (Auto) Not Reportable Lymph # (Auto) Not Reportable [place] # (Auto) Not Reportable Eos # (Auto) Not Reportable Baso # (Auto) Not Reportable Absolute Nucleated RBC Not Reportable Total Counted 100 Band Neuts % (Manual) 16 H Abnorm Lymph % (Manual) 0 Nucleated RBC % Not Reportable Neutrophils # (Manual) 26.4 H Lymphocytes # (Manual) 1.8 Monocytes # (Manual) 1.2 H Eosinophils # (Manual) 0.0 Basophils # (Manual) 0.0 Differential Comment MANUAL DIFFERENTIAL WBC Morphology NORMAL APPEARANCE Platelet Estimate NORMAL (130-450,000) Platelet Morphology NORMAL APPEARANCE RBC Morph Micro Appear NORMAL APPEARANCE Sodium 117 L* Potassium 3.9 Chloride 76 L* Carbon Dioxide 14 L Anion Gap 27.0 H BUN 38 H Creatinine 1.6 H Estimated GFR (MDRD) 35 L Glucose 867 H* POC Whole Bld Glucose > 600 Lactic Acid 1.8 Calcium 8.8 Total Bilirubin 0.4 AST 10 ALT 9 L Alkaline Phosphatase 126 H Total Protein 7.5 Albumin 3.5 Globulin 4.0 Albumin/Globulin Ratio 0.9 L Lipase 16 Urine Color Urine Clarity Urine pH Ur Specific Hunters Urine Protein Urine Glucose (UA) Urine Ketones Urine Occult Blood Urine Nitrite Urine Bilirubin Urine Urobilinogen Ur Leukocyte Esterase Urine RBC Urine WBC Ur Squamous Epith Cells Urine Bacteria Urine Trichomonas Ur Microscopic Review Urine Culture Comments Nasal Adenovirus (PCR) NOT DETECTED Nasal B. parapertussis DNA (PCR) NOT DETECTED Nasal Coronavir 229E PCR NOT DETECTED Nasal Coronavir HKU1 PCR NOT DETECTED Nasal Coronavir NL63 PCR NOT DETECTED Nasal Coronavir OC43 PCR NOT DETECTED Nasal Enterovir/Rhinovir PCR NOT DETECTED Nasal Influenza B PCR NOT DETECTED Nasal Influenza A PCR NOT DETECTED Nasal Parainfluen 1 PCR NOT DETECTED Nasal Parainfluen 2 PCR NOT DETECTED Nasal Parainfluen 3 PCR NOT DETECTED Nasal Parainfluen 4 PCR NOT DETECTED Nasal RSV (PCR) NOT DETECTED Nasal B.pertussis DNA PCR NOT DETECTED Nasal C.pneumoniae (PCR) NOT DETECTED Jaspreet Human Metapneumo PCR NOT DETECTED Nasal M.pneumoniae (PCR) NOT DETECTED Nasal SARS-CoV-2 (PCR) NOT DETECTED Gastric Occult Blood Serum Ketones MODERATE H 11/27/24 11/27/24 11/27/24 10:45 10:53 10:56 WBC RBC Hgb Hct MCV MCH MCHC RDW Plt Count MPV Neut # (Auto) Lymph # (Auto) [place] # (Auto) Eos # (Auto) Baso # (Auto) Absolute Nucleated RBC Total Counted Band Neuts % (Manual) Abnorm Lymph % (Manual) Nucleated RBC % Neutrophils # (Manual) Lymphocytes # (Manual) Monocytes # (Manual) Eosinophils # (Manual) Basophils # (Manual) Differential Comment WBC Morphology Platelet Estimate Platelet Morphology RBC Morph Micro Appear Sodium 125 L Potassium 3.5 Chloride 87 L Carbon Dioxide 17 L Anion Gap 21.0 H BUN 35 H Creatinine 1.3 Estimated GFR (MDRD) 45 L Glucose 647 H* POC Whole Bld Glucose > 600 Lactic Acid Calcium 8.0 L Total Bilirubin AST ALT Alkaline Phosphatase Total Protein Albumin Globulin Albumin/Globulin Ratio Lipase Urine Color Urine Clarity Urine pH Ur Specific Hunters Urine Protein Urine Glucose (UA) Urine Ketones Urine Occult Blood Urine Nitrite Urine Bilirubin Urine Urobilinogen Ur Leukocyte Esterase Urine RBC Urine WBC Ur Squamous Epith Cells Urine Bacteria Urine Trichomonas Ur Microscopic Review Urine Culture Comments Nasal Adenovirus (PCR) Nasal B. parapertussis DNA (PCR) Nasal Coronavir 229E PCR Nasal Coronavir HKU1 PCR Nasal Coronavir NL63 PCR Nasal Coronavir OC43 PCR Nasal Enterovir/Rhinovir PCR Nasal Influenza B PCR Nasal Influenza A PCR Nasal Parainfluen 1 PCR Nasal Parainfluen 2 PCR Nasal Parainfluen 3 PCR Nasal Parainfluen 4 PCR Nasal RSV (PCR) Nasal B.pertussis DNA PCR Nasal C.pneumoniae (PCR) Jaspreet Human Metapneumo PCR Nasal M.pneumoniae (PCR) Nasal SARS-CoV-2 (PCR) Gastric Occult Blood POSITIVE A Serum Ketones 11/27/24 11:08 WBC RBC Hgb Hct MCV MCH MCHC RDW Plt Count MPV Neut # (Auto) Lymph # (Auto) [place] # (Auto) Eos # (Auto) Baso # (Auto) Absolute Nucleated RBC Total Counted Band Neuts % (Manual) Abnorm Lymph % (Manual) Nucleated RBC % Neutrophils # (Manual) Lymphocytes # (Manual) Monocytes # (Manual) Eosinophils # (Manual) Basophils # (Manual) Differential Comment WBC Morphology Platelet Estimate Platelet Morphology RBC Morph Micro Appear Sodium Potassium Chloride Carbon Dioxide Anion Gap BUN Creatinine Estimated GFR (MDRD) Glucose POC Whole Bld Glucose Lactic Acid Calcium Total Bilirubin AST ALT Alkaline Phosphatase Total Protein Albumin Globulin Albumin/Globulin Ratio Lipase Urine Color YELLOW Urine Clarity CLEAR Urine pH 6.0 Ur Specific [place] 1.020 Urine Protein TRACE Urine Glucose (UA) >=1000 H Urine Ketones >=80 H Urine Occult Blood LARGE H Urine Nitrite NEGATIVE Urine Bilirubin NEGATIVE Urine Urobilinogen 0.2 (NORMAL) Ur Leukocyte Esterase NEGATIVE Urine RBC 0-5 Urine WBC 0-3 Ur Squamous Epith Cells FEW Squamous Urine Bacteria Few Urine Trichomonas PRESENT H Ur Microscopic Review INDICATED Urine Culture Comments NOT INDICATED Nasal Adenovirus (PCR) Nasal B. parapertussis DNA (PCR) Nasal Coronavir 229E PCR Nasal Coronavir HKU1 PCR Nasal Coronavir NL63 PCR Nasal Coronavir OC43 PCR Nasal Enterovir/Rhinovir PCR Nasal Influenza B PCR Nasal Influenza A PCR Nasal Parainfluen 1 PCR Nasal Parainfluen 2 PCR Nasal Parainfluen 3 PCR Nasal Parainfluen 4 PCR Nasal RSV (PCR) Nasal B.pertussis DNA PCR Nasal C.pneumoniae (PCR) Jaspreet Human Metapneumo PCR Nasal M.pneumoniae (PCR) Nasal SARS-CoV-2 (PCR) Gastric Occult Blood Serum Ketones PD Medical Decision Making ED course Complexity details: reviewed old records, reviewed results, re-evaluated patient, considered differential, d/w patient, d/w family and d/w data governance consultant ED course: The pt was worked up with CBC, ER abd panel, UA, CXR, EKG, resp PCR panel, and blood cx, and started on NS. Her labs showed severe abnormalities, including Na+ 117, glucose 867, and WBC 29. She was started on broad spectrum abx, and insulin drip initiated. I d/w hospitalist, and pt was admitted to ICU. Discharge Plan Discharge Patient Disposition: 66 [facility] DC/Xfer Condition: Critical Clinical Impression: DKA (diabetic ketoacidosis), Hyponatremia, Leukocytosis Interventions: ED Admission Assessment Last Done: 11/27/24 12:07 Vitals documented within 30 minutes of discharge?: Yes
== END 2024-11-29 01:51 | disposition short-term general hospital (02) | DRG 871 ==
LOC: ED 06:46 → ICU 11:52 → MS2 11-28 00:09
PROVIDERS: ADMIT Student in an Organized Health Care Education/Training Program; ATTEND Student in an Organized Health Care Education/Training Program